=== PATIENT | female | born 1940 | race Caucasian/White ===

== ENCOUNTER → 2018-01-05 07:59 | Outpatient (CLI) | payer MEDICARE, SELFPAY ==
--- NOTE | 2018-01-05 08:04 | CT_ITS ---
CT abdomen pelvis wo con CLINICAL INDICATION: Left lower quadrant pain with nausea ITS.REASON: LLQ PAIN ORDERING PHYSICIAN: Ayan Sanchez PATIENT AGE: 77 years COMPARISON: 07/13/2017 TECHNIQUE: Axial images obtained with sagittal and coronal reformats. PROCEDURE: Oral Contrast: None IV Contrast: None . FINDINGS: No acute finding in the lung bases. The liver, gallbladder, spleen, adrenal glands, and pancreas have an unremarkable unenhanced CT appearance. There is minimal prominence of the renal pelves. No obstructing ureteral calculi are evident. Unremarkable appendix. No intestinal obstruction or free air. There is extensive diverticulosis of the sigmoid colon with diverticula also present in the descending colon. No evidence of diverticulitis. No mass or focal inflammatory change within the pelvis. There is mild wedging of L1 which appears chronic with grade 1 nonspecific white lytic spondylolisthesis of L4 on L5 and degenerative disc disease of the lumbar spine. IMPRESSION: 1. No acute abdominal or pelvic findings. 2. Extensive sigmoid diverticulosis with no evidence of diverticulitis.
--- NOTE | 2018-01-05 08:29 | HMH.ITSHM ---
CENTRUM,METIPROLOL PRAVASTATIN,LEVOTHYROXIN MIRALAX,NEXIUM GEMFIBROZIL METFROMIN NAPROXEN LISINOPRI'; CALTRATE,GABAPENTIN
== END ==
PROVIDERS: Family Provider Internal Medicine; PCP Internal Medicine; Visit Provider Internal Medicine
DX: R10.32 Left lower quadrant pain (principal)
CPT/HCPCS: 74176

== ENCOUNTER 2018-03-29 13:30 | Outpatient (RCR) | payer MEDICARE, SELFPAY ==
--- NOTE | 2018-01-27 15:46 | HMH.PTOPEV ---
Rehab Outpatient Evaluation Rehab OP Evaluation Start: 01/27/18 15:11 Freq: Status: Active Protocol: Document 01/27/18 15:11 LORI (Rec: 01/27/18 15:46 LORI [id number]) Electronically Signed By Alan Hayden, PT 01/27/18 15:11 Outpatient Therapy Subjective History Subjective History Pt reports injuring low back on 01/13/18 while attempting to help lift up off the floor, who had recently fallen . Pt reports midline LBP initially, however, reports LBP has increased in intensity since injury, and has also began to radiate into R lumbar paraspinal region. PMH: OA, DM, chronic LBP Chief Complaint Pain Spasms Stiff Symptom Type Ache Throb Sharp Dull Symptoms Relieved By Heat OTC Meds Symptoms Aggravated By Physical Activity Walking Lifting Prior Functional Limitations None Current Functional Limitations Lifting Housework Standing Walking Bending/Stooping Symptom Description Constant but Variable Level of pain today (0-10) 8 Pain scale - at its best (0-10) 6 Pain scale - at its worst (0-10) 8 Lumbopelvic Eval Posture Thoracic Spine Posture Standing Position Flattened Lumbar Spine Posture Standing Position Flattened Assistive device Assistive Devices None / NA Gait Observation General Gait Pattern Observation Antalgic Gait Palapation tenderness left paraspinal tenderness Yes: 1/4 right lumbar spinal tenderness Yes: 2/4 paraspinal tenderness Yes: 3/4 buttock tenderness Yes: 3/4 Accessory Movement L-spine Vertebrae Accessory Movements [employer] [place] that Elicit Symptoms L3 bilateral L4 bilateral L5 bilateral S1 bilateral Range of Motion Lumbar Spine Active Flexion Range of 0-30 Motion (degrees) Lumbar Spine Active Extension Range of 0-10 Motion (degrees) Left Lumbar Spine Lateral Flexion Active 0-20 Range of Motion (degrees) Right Lumbar Spine Lateral Flexio
== END 2018-03-29 13:31 | disposition home or self-care (01) ==
LOC: PT 13:30
PROVIDERS: Family Provider Internal Medicine; PCP Internal Medicine; Visit Provider Internal Medicine
DX: M54.5 Low back pain (principal)
CPT/HCPCS: 97010; 97014; 97035; 97110; 97140; G0283

== ENCOUNTER → 2018-11-07 11:08 | Outpatient (CLI) | payer MEDICARE, SELFPAY ==
[2018-11-07 11:19] LABS: Basophils # 0.1 K/mm3 (0-0.2); Basophils % 0.7 % (0.1-2.0); Eosinophils # 0.2 K/mm3 (0.0-0.4); Eosinophils % 1.8 % (0.1-12.0); Hematocrit 39.3 % (37.0-47.0); Hemoglobin 12.7 g/dL (12.2-16.2); Lymphocytes # 1.5 K/mm3 (0.7-4.5); Lymphocytes % 18.4 % (10-50); Mean Corpuscular HGB Conc 32.4 g/dL (31.8-35.4); Mean Corpuscular Hemoglobin 26.1 pg (27.0-31.2); Mean Corpuscular Volume 80.6 fl (81-99); Monocytes # 0.5 K/mm3 (0.1-1.0); Monocytes % 5.7 % (1.7-9.3); Neutrophils % 73.5 % (37.0-80.0); Platelet Count 306 K/mm3 (142-424); Red Blood Count 4.88 M/mm3 (4.20-5.40); Red Cell Distribution Width 15.2 % (11.5-17.5); White Blood Count 8.1 K/mm3 (4.8-10.8)
[2018-11-07 11:38] LABS: Alanine Aminotransferase 29 U/L (12-78); Albumin Level 3.1 gm/dL (3.4-5.0); Albumin/Globulin Ratio 0.8 (1.1-1.8); Alkaline Phosphatase 119 U/L (46-116); Amylase 36 U/L (25-115); Anion Gap 12.6 mEq/L (5-15); Aspartate Amino Transferase 18 U/L (15-37); Bilirubin,Total 0.6 mg/dL (0.2-1.0); Blood Urea Nitrogen 11 mg/dL (7-18); Calcium 8.9 mg/dL (8.5-10.1); Carbon Dioxide 28 mmol/L (21.0-32.0); Chloride 99 mmol/L (98-107); Creatinine,Serum 0.99 mg/dL (0.55-1.02); Estimated Glomerular Filt Rate 54 ml/min (>60); GFR (African American) 65 ML/MIN (>60); Globulin 3.7 gm/dl (1.3-3.2); Glucose 151 mg/dL (74-106); Potassium 3.6 mmoL/L (3.5-5.1); Sodium 136 mmol/L (136-145); Total Protein,Serum 6.8 gm/dL (6.4-8.2)
== END ==
PROVIDERS: PCP Internal Medicine; Visit Provider Internal Medicine
DX: R11.2 Nausea with vomiting, unspecified (principal)
CPT/HCPCS: 80053; 82150; 85025

== ENCOUNTER → 2018-12-12 14:22 | Outpatient (CLI) | payer MEDICARE, SELFPAY ==
--- NOTE | 2018-12-12 14:30 | XR_ITS ---
XR chest 2V HISTORY: ITS.REASON: FEVER,COUGH,ASTHMA, ORDERING PHYSICIAN: Ayan Sanchez PATIENT AGE: 78 years COMPARISON: None FINDINGS: The cardiomediastinal silhouette and pulmonary vascularity are within normal limits. Coronary artery calcifications are present. There is hyperinflation with attenuation of the peripheral pulmonary vessels. The lungs are clear without infiltrates, suspicious nodules, or pleural effusions. There is a 7 mm rounded opacity overlying the right lower lobe which is nonspecific and could even be due to summation artifact No acute bony abnormalities. IMPRESSION: 1. Coronary artery calcification. 2. Mild hyperinflation. No lobar consolidation. 3. There is a 7 mm nodular opacity noted over the right lower lung zone nonspecific. Consider follow-up to confirm stability
== END ==
PROVIDERS: PCP Internal Medicine; Visit Provider Internal Medicine
DX: R50.9 Fever, unspecified (principal); R05 Cough; J45.909 Unspecified asthma, uncomplicated
CPT/HCPCS: 71046

== ENCOUNTER → 2020-04-17 10:48 | Outpatient (CLI) | payer MEDICARE, SELFPAY ==
[2020-04-17 12:34] LABS: Coronavirus 19 IgG Antibody Negative (Negative); Coronavirus 19 IgM Antibody Negative (Negative)
== END ==
PROVIDERS: Visit Provider Internal Medicine Gastroenterology
DX: Z01.818 Encounter for other preprocedural examination (principal)
CPT/HCPCS: 36415; 86328

== ENCOUNTER 2020-04-19 10:02 | Day surgery (SDC) | payer MEDICARE, SELFPAY ==
[2020-04-19] VITALS (10 sets, daily range): BP systolic 166–215; BP diastolic 71–99; PULSE 53–77; RESP 16–18; TEMP 36.7; O2SAT 97–100; BMI 23.6
--- NOTE | 2020-04-19 11:07 | P.PN_ITS ---
[facility] Anesthesia Checklist - Patient Identification Patient Identification: Arm Band, Verbal (Name & ) - Structural Data Admitted From: Home Planned Operative Procedure/s: EGD Consent for Planned Operative Procedure(s) Verified: Yes Verified Documents: Surgical Consent, History and Physical - NPO Status Verified Time NPO: 00:00 - Chart Verification Results Verified: None - Additional verifications Anesthesia Reactions: No - Airway Assessment C-Spine Mobility Assessed: Yes TMJ Mobility Assessed: Yes Dentition: Poor Dentition - Neurological Assessment Level of Consciousness: Awake, Alert, Appropriate, Follows Commands Hx Seizures: No Numbness or tingling in extremities: No - Anesthesia Plan Anesthesia Risk discussed: Yes Anesthesia Plan: Verified ASA Class: III Anesthesia Type: MAC [facility] History I have reviewed the patient's past medical history: Yes Medical History: Reports:: Chronic Obstructive Pulmonary Disease (COPD), Gastroesophageal Reflux Disease(GERD), Hyperlipidemia, Hypertension, Migraine Denies:: Cancer, Diabetes Mellitus Type 1, Diabetes Mellitus Type 2, Internal Pacemaker, MRSA, Seizures *Have you ever received a pneumonia vaccine?: Yes *Have you received a flu vaccine this season?: Yes Comment:: KRISTEN Anesthesia experience/problems:: None Other Surgeries: No: Pacemaker Amputation: No Fractures: No - *Social History Educational Level: Completed High School Smoking Status: Never smoker Alcohol Intake: never Substance Use Type: denies use *Occupational Status:: retired Housing: house Household Members: spouse *Travel in the last 8 weeks: None Family Hx:: Other (NA)
--- NOTE | 2020-04-19 11:09 | P.PCN_ITS ---
[facility] Procedure Note Procedure Note:: Upper Endoscopy Procedure Report: Esophagogastroduodenoscopy with cold biopsies and TTS balloon dilation Endoscopost: Sal Dang II, MD Referring Physician: Ayan Sanchez MD Date of Procedure: April 19, 2020 Equipment: Olympus GIF 180 standard upper endoscope Sedation: MAC sedation Indications: Mrs. Willis is an 79-year-old female with midepigastric abdominal discomfort postprandially. She does report moderate belching and some bloating with early satiety. She has occasional nausea. She does get heartburn and takes Tums but not PPI therapy. She does get intermittent swallowing difficulty/dysphagia. She reports regular bowel function. This is her first upper endoscopy performed for diagnostic purposes. Procedure: Prior to the procedure, a history and physical exam was performed, and patient's medications and allergies were reviewed. The risks, benefits and alternatives of the sedation and procedure were discussed with the patient. All questions were answered and informed consent was obtained. The patient was brought to the procedure room. Patient identification and proposed procedure were verified by the physician and the nurse. The patient was placed in a left lateral decubitus position and the scope was passed under direct vision. Throughout the procedure, the patient's blood pressure, pulse, and oxygen saturations were monitored continuously. The upper GI endoscopy was accomplished without difficulty. The patient tolerated the procedure well. Findings: The scope was passed directly into the upper esophagus and advanced to the third portion of the duodenum. The post bulbar duodenum and duodenal bulb were normal with normal mucosa and conniventes. The scope was withdrawn through a normal duodenal bulb and pylorus into the stomach. There was very mild reactive gastropathy of the antrum. The body of the stomach was normal. Upon retroflexion there was a moderate sized 4 to 5 cm hiatal hernia. There were no Santi's erosions. 2 biopsies were taken from the gastric antrum and lesser curvature for histology. The scope was then withdrawn into the esophagus. There was a distal esophageal ring/Schatzki's ring. There was some nonerosive changes of reflux and biopsies were taken at the GE junction. There were tertiary contractions and evidence of moderate esophageal dysmotility. The entire esophagus was dilated to 60 [place]/20 mm with a TTS hydrostatic balloon. There was some resistance at the cricopharyngeus. The remainder of the es ophageal mucosa was normal. Impression: 1. Cricopharyngeal spasm 2. Nonerosive GERD with moderate esophageal dysmotility 3. Moderate sized 4 to 5 cm hiatal hernia 5. Mild reactive gastropathy Plan: I will discuss additional dietary measures and treatment options of her ongoing dyspepsia. I will follow-up the biopsies.
--- NOTE | 2020-04-19 13:59 | PC.NURSE ---
order obtained from anesthesia for pt bp. see emar.
--- NOTE | 2020-04-19 14:04 | PC.NURSE ---
Instructed pt to monitor bp, f/u with family MD if remains elevated.
--- NOTE | 2020-04-19 15:58 | SUR.PHASEII ---
1545-Pt msg left on cell voice mail that Omeprazole RX was called into [facility] in [place]. Pt Daughter drop script in hallway and was found after pt left.
== END 2020-04-19 12:20 | disposition home or self-care (01) ==
LOC: OUTP 10:06
PROVIDERS: PCP Internal Medicine; Visit Provider Internal Medicine Gastroenterology
PROC: 0DJ08ZZ Inspection of Upper Intestinal Tract, Via Natural or Artificial Opening Endoscopic (ICD-10-PCS; CPT 43235; principal; 2020-04-19 11:00)
DX: J39.2 Other diseases of pharynx (principal); K22.2 Esophageal obstruction; K21.9 Gastro-esophageal reflux disease without esophagitis; K31.9 Disease of stomach and duodenum, unspecified; K44.9 Diaphragmatic hernia without obstruction or gangrene; I10 Essential (primary) hypertension; E78.5 Hyperlipidemia, unspecified; G47.33 Obstructive sleep apnea (adult) (pediatric); J44.9 Chronic obstructive pulmonary disease, unspecified; G43.909 Migraine, unspecified, not intractable, without status migrainosus; Z79.899 Other long term (current) drug therapy
CPT/HCPCS: 43239; 43249; 88305; C1726

== ENCOUNTER 2021-04-18 09:21 | Emergency (ER) | payer MEDICARE, SELFPAY ==
[2021-04-18] VITALS (10 sets, daily range): BP systolic 170–246; BP diastolic 75–114; PULSE 60–75; RESP 16–22; TEMP 36.4–36.7; O2SAT 94–99; BMI 21.7
--- NOTE | 2021-04-18 09:23 | CT_ITS ---
PROCEDURE: CT THORACIC SPINE WO CON CT lumbar spine without contrast CLINICAL HISTORY: fall with thoracic and lumbar vertebral pain COMPARISON: CT ABDPELWO CT abdomen pelvis wo con from 01/05/2018 CR CXR2V XR chest 2V from 12/12/[address] LUMBAR SPINE WO CON from 04/18/2021 TECHNIQUE: Axial images obtained with sagittal and coronal reformats. All CT scans at the facility use one or more dose reduction, viz: automated exposure control, ma/kV adjustment per patient size (including targeted exams where dose is matched to indication, i.e. head), or iterative reconstruction technique. FINDINGS: CT thoracic spine shows a moderate compression fracture of the T7 vertebral body estimated at 50 percent without retropulsion of fracture components into the spinal canal or posterior element involvement. No other compression fractures. Moderate diffuse degenerative changes are present with some degenerative change of the lower cervical spine. Visualized lung garcia and thoracic aorta are normal. There is a small retrocardiac hiatal hernia. CT lumbar spine shows a moderate to high-grade compression fracture of the L2 vertebral body with moderate retropulsion of the superior aspect of the fracture component into the spinal canal with resultant mild spinal canal stenosis. No posterior element involvement. No other compression fractures of the lumbar spine. Extensive diffuse degenerative changes are present, most pronounced at L5-S1. Small Schmorl's node formation inferior endplate L1 noted. SI joints are normal. No adrenal mass is noted. Remainder of the visualized abdominal organs show no focal abnormality. IMPRESSION: Moderate compression fracture of the T7 vertebral body without posterior element involvement or retropulsion of fracture components into the spinal canal. Moderate to high-grade compression fracture of the L2 vertebral body with moderate retropulsion of the fracture component into the spinal canal and resultant mild spinal canal stenosis. No posterior element involvement. Diffuse degenerative changes of the thoracic spine elsewhere noted. Extensive diffuse degenerative changes of the lumbar spine, most pronounced at L5-S1. Small retrocardiac hiatal hernia. Dictated by: Robert Melendez MD 04/18/2021 10:18 Robert Melendez MD in [place] 04/18/2021 10:18
--- NOTE | 2021-04-18 09:26 | HMH.EDBACK ---
ED Disposition Clinical Impression: Thoracic spine fracture Qualifiers: Encounter type: initial encounter Thoracic vertebra fracture level: T7 Fracture type: closed Fracture morphology: unspecified fracture morphology Qualified Code(s): S22.069A - Unspecified fracture of T7-T8 vertebra, initial encounter for closed fracture Fracture of lumbar spine Qualifiers: Encounter type: initial encounter Lumbar vertebra fracture level: L2 Fracture type: closed Fracture morphology: unspecified fracture morphology Qualified Code(s): S32.029A - Unspecified fracture of second lumbar vertebra, initial encounter for closed fracture Disposition: Xfer Short-Term Hosp Condition on Discharge: Good - Critical Care Critical Care Time: No Attestation: On , the high probability of a clinically significant, sudden or life threatening deterioration of the following system(s) required my full and direct attention, intervention and personal management. The time I documented below is in addition to time spent performing reported procedures but includes the following listed in this critical care notation. Medical Decision Making - Medical Records Medical records reviewed: Yes: I reviewed the patient's medical records. - Julius Inquiry Pt receiving controlled substance: Yes Julius was queried for this patient: No Reason not queried -: Julius login issues Risks and benefits of using a controlled substance: were discussed with pt by me Vital Signs: 04/18/21 09:22 Temperature 97.9 F Temperature Source Oral Pulse Rate [Right] 69 Respiratory Rate 20 Blood Pressure [Right Arm] 230/113 H Blood Pressure Mean [Right Arm] 152 Blood Pressure Source [Right Arm] Automatic Cuff Blood Pressure Position [Right Arm] Sitting 02 Sat by Pulse Oximetry 94 L - Lab Data Lab Results 04/18/21 09:26: Urine Color Yellow, Urine Appearance Sl cloudy, Urine pH 8.0, Ur Specific [place] 1.025, Urine Protein 3+, Urine Glucose (UA) Negative, Urine Ketones Negative, Urine Blood 1+, Urine Nitrate Negative, Urine Bilirubin Negative, Urine Urobilinogen 0.2, Ur Leukocyte Esterase Negative, Urine RBC 5-10, Urine WBC 3-5, Ur Squamous Epith Cells Occasional, Urine Bacteria 1+ Orders (Tests/Meds): ED MEDICATIONS Discontinued Medications Generic Name Dose Route Start Last Admin Trade Name Freq PRN Reason Stop Dose Admin Metoprolol Tartrate 50 mg 04/18/21 09:35 04/18/21 10:40 Metoprolol Tartrate 50mg Tablet PO 04/18/21 09:36 50 mg ONCE ONE Administration Oxycodone/Acetaminophen 1 each 04/18/21 11:02 Oxycodone 5mg W/Apap 325mg Tablet PO 04/18/21 11:03 ONCE ONE - CT Data CT Scan: T-Spine, L-Spine Time Received: 11:[address] Reviewed: Yes: I have reviewed the patient's CT results Findings Narrative: Moderate compression fracture of the T7 vertebral body without posterior element involvement or retropulsion of fracture components into the spinal canal. Moderate to high-grade compression fracture of the L2 vertebral body with moderate retropulsion of the fracture component into the spinal canal and resultant mild spinal canal stenosis. No posterior element involvement. Diffuse degenerative changes of the thoracic spine elsewhere noted. Extensive diffuse degenerative changes of the lumbar spine, most pronounced at L5-S1. Small retrocardiac hiatal hernia. Medical Decision Narrative: Patient with no signs of head trauma and denies any head injury, does not take blood thinners. She is alert and oriented x4, cervical spine cleared via Nexus criteria. Thoracic and lumbar spine CT scan show moderate T7 compression fracture with involvement of 50%, no retropulsion of fragments and L2 moderate to high-grade compression fracture with some retropulsion and spinal canal stenosis. Patient remains neurovascularly intact. I discussed this case with Dr. Eagle, on-call with neurosurgery at the [facility] and he accepts the patient there
--- NOTE | 2021-04-18 09:31 | PC.NURSE ---
pt ambulated to restroom with staff assist x1, tolerated well
[2021-04-18 09:32] LABS: Microscopic, Urine URINE MICROSCOPIC (MICROSCOPIC)
[2021-04-18 09:35] LABS: Appearance,Urine SL CLOUDY (Clear); Bilirubin,Urine Negative (Negative); Blood, Urine 1+ (Negative); Color,Urine YELLOW (Yellow); Glucose,Urine (UA) Negative (Negative); Ketones,Urine Negative (Negative); Leukocyte Esterase,Urine Negative (Negative); Nitrate,Urine Negative (Negative); Protein,Urine 3+ (Negative); Specific Gravity, Urine 1.025 (1.005-1.030); Urobilinogen,Urine 0.2 EU/dl (0.2)
--- NOTE | 2021-04-18 09:37 | PC.NURSE ---
pt to CT
[2021-04-18 09:44] LABS: Squamous Epithelial Cell,Urine Occasional #/hpf (0-5)
[2021-04-18 09:45] LABS: Bacteria,Urine 1+ /lpf
--- NOTE | 2021-04-18 12:35 | PC.NURSE ---
notified [facility] of transfer of pt
--- NOTE | 2021-04-18 12:41 | PC.NURSE ---
notified ER MD of continued elevated bp er md gave verbal order for hydralazine 10 mg one time dose
--- NOTE | 2021-04-18 13:14 | PC.NURSE ---
report called to timi cordova rn
--- NOTE | 2021-04-18 13:25 | PC.NURSE ---
report given to [facility]
== END 2021-04-18 13:26 | disposition short-term general hospital (02) ==
PROVIDERS: Emergency Provider Emergency Medicine; PCP Internal Medicine
DX: S22.069A Unspecified fracture of T7-T8 vertebra, initial encounter for closed fracture (principal); S32.029A Unspecified fracture of second lumbar vertebra, initial encounter for closed fracture; W18.00XA Striking against unspecified object with subsequent fall, initial encounter; Y92.012 Bathroom of single-family (private) house as the place of occurrence of the external cause; J44.9 Chronic obstructive pulmonary disease, unspecified; K21.9 Gastro-esophageal reflux disease without esophagitis; E78.5 Hyperlipidemia, unspecified; I10 Essential (primary) hypertension; Z79.899 Other long term (current) drug therapy
CPT/HCPCS: 72128; 72131; 81001; 96374; 96375; 99283; J2405

== ENCOUNTER 2022-06-15 01:19 | Inpatient (IN) | payer MEDICARE, SELFPAY ==
[2022-06-15] VITALS (14 sets, daily range): BP systolic 149–190; BP diastolic 68–82; PULSE 58–89; RESP 16–21; TEMP 36.3–36.8; O2SAT 90–97; BMI 23.3; BMI 22.4
--- NOTE | 2022-06-15 01:33 | XR_ITS ---
PROCEDURE INFORMATION: Exam: XR Right Hip Exam date and time: 06/15/2022 2:01 AM Age: 81 years old Clinical indication: Injury or trauma; Fall; Blunt trauma (contusions or hematomas); Right; Hip TECHNIQUE: Imaging protocol: Radiologic exam of the Right hip. Views: 2 or 3 views hip with pelvis when performed. COMPARISON: ABDPELWO CT abdomen pelvis wo con 01/05/2018 8:12 AM FINDINGS: Bones/joints: Comminuted angulated intertrochanteric fracture of the proximal right femur noted. Bony pelvis appears intact. Visualized proximal left femur appears intact. Soft tissues: Unremarkable. IMPRESSION: Comminuted angulated intertrochanteric fracture of the right femur.
--- NOTE | 2022-06-15 01:33 | CT_ITS ---
PROCEDURE INFORMATION: Exam: CT Head Without Contrast Exam date and time: 06/15/2022 2:34 AM Age: 81 years old Clinical indication: Injury or trauma; Fall TECHNIQUE: Imaging protocol: Computed tomography of the head without contrast. Radiation optimization: All CT scans at this facility use at least one of these dose optimization techniques: automated exposure control; mA and/or kV adjustment per patient size (includes targeted exams where dose is matched to clinical indication); or iterative reconstruction. COMPARISON: No relevant prior studies available. FINDINGS: Brain: There is mild enlargement of ventricular system and cortical sulci without evidence of mass effect or midline shift. Patchy areas of hypodensity without mass-effect are noted in the periventricular white matter compatible with chronic microvascular ischemic disease. The duarte/white matter interfaces are preserved. There are no extra-axial fluid collections.The basal cisterns are patent. Cerebral ventricles: No hydrocephalus. Paranasal sinuses: Opacification of the right maxillary, right ethmoid, sphenoid and right frontal sinuses. No fluid levels. Mastoid air cells: Visualized mastoid air cells are well aerated. Bones/joints: Unremarkable. No acute fracture. Soft tissues: Unremarkable. IMPRESSION: 1. No evidence of intracranial hemorrhage, mass effect, midline shift or hydrocephalus. 2. Involutional changes. 3. Findings compatible with chronic microvascular ischemic disease. 4. Opacification of the right maxillary, right ethmoid, sphenoid and right frontal sinuses.
--- NOTE | 2022-06-15 01:33 | ECG_ITS ---
APPROVED REPORT Exam: Resting ECG HR:59 bpm ECG Measurements Heart Rate 59 AXES DE 194 P 72 QRSd 84 QRS 29 QT 430 T 75 QTc 429 Conclusion SINUS BRADYCARDIA LOW QRS VOLTAGE IN EXTREMITY LEADS [QRS DEFLECTION < 0.5 mV IN LIMB LEADS] SEPTAL MYOCARDIAL INFARCTION , PROBABLY OLD [40+ ms Q WAVE IN V1/V2] ABNORMAL ECG UNCONFIRMED REPORT Electronically signed by : Minh Chase MD 06/15/2022 14:21:52
--- NOTE | 2022-06-15 01:33 | XR_ITS ---
PROCEDURE INFORMATION: Exam: XR Right Femur Exam date and time: 06/15/2022 2:04 AM Age: 81 years old Clinical indication: Injury or trauma; Fall; Blunt trauma; Thigh or upper leg; Right TECHNIQUE: Imaging protocol: Radiologic exam of the Right femur. Views: 2 views. COMPARISON: CR XR HIP RT 2-3V W/PELVIS 06/15/2022 2:01 AM FINDINGS: Bones/joints: There is a comminuted angulated intertrochanteric fracture of the proximal femur. Femoral diaphysis and visualized portions of the knee are normal. Soft tissues: Unremarkable. IMPRESSION: Comminuted angulated intertrochanteric fracture the proximal femur.
--- NOTE | 2022-06-15 01:33 | XR_ITS ---
PROCEDURE INFORMATION: Exam: XR Chest Exam date and time: 06/15/2022 2:06 AM Age: 81 years old Clinical indication: Injury or trauma; Fall; Blunt trauma (contusions or hematomas) TECHNIQUE: Imaging protocol: Radiologic exam of the chest. Views: 4 or more views. COMPARISON: CR CXR2V XR chest 2V 12/12/2018 2:33 PM FINDINGS: Lungs: Unremarkable. No consolidation. Pleural spaces: Unremarkable. No pleural effusion. No pneumothorax. Heart/Mediastinum: Unremarkable. No cardiomegaly. Vasculature: Calcified aortic arch without dilation. Bones/joints: Midthoracic compression deformity is notable in light of recent CT. IMPRESSION: No acute cardiopulmonary abnormality.
--- NOTE | 2022-06-15 01:33 | CT_ITS ---
PROCEDURE INFORMATION: Exam: CT Thoracic Spine Without Contrast Exam date and time: 06/15/2022 2:39 AM Age: 81 years old Clinical indication: Injury or trauma; Fall TECHNIQUE: Imaging protocol: Computed tomography of the thoracic spine without contrast. Radiation optimization: All CT scans at this facility use at least one of these dose optimization techniques: automated exposure control; mA and/or kV adjustment per patient size (includes targeted exams where dose is matched to clinical indication); or iterative reconstruction. COMPARISON: CT THORACIC SPINE WO CON 04/18/2021 9:56 AM FINDINGS: Bones/joints: There has been interval progression of compression deformity at T7, it now all appearing as vertebra plana. Inferior endplate deformity at T1 is unchanged from the prior. Segmentation anomaly at T8-9 noted, unchanged. Otherwise visualized posterior ribs appear normal. Discs/Spinal canal/Neural foramina: Posterior cortex protrudes into the spinal canal but the spinal canal remains adequate. There is multilevel costovertebral junction osteoarthritis. Soft tissues: Unremarkable. Lungs: Imaged lung parenchyma is clear. IMPRESSION: 1. There has been interval progression of T7 compression deformity when compared to prior exam in April. There is now vertebral plana with fragment of posterior cortex protruding slightly into the spinal canal. 2. No other acute abnormality. Consider quantification of osteoporosis with DEXA.
--- NOTE | 2022-06-15 01:33 | CT_ITS ---
PROCEDURE INFORMATION: Exam: CT Lumbar Spine Without Contrast Exam date and time: 06/15/2022 2:42 AM Age: 81 years old Clinical indication: Injury or trauma; Fall TECHNIQUE: Imaging protocol: Computed tomography of the lumbar spine without contrast. Radiation optimization: All CT scans at this facility use at least one of these dose optimization techniques: automated exposure control; mA and/or kV adjustment per patient size (includes targeted exams where dose is matched to clinical indication); or iterative reconstruction. COMPARISON: CT LUMBAR SPINE WO CON 04/18/2021 9:59 AM FINDINGS: Bones/joints: Superior compression deformity at L2 is unchanged from prior exam. Schmorl's node affecting the inferior endplate of L1 is unchanged. Discs/Spinal canal/Neural foramina: There is multilevel degenerative disc and facet disease. There is mild spinal canal stenosis at L1-L2. At L2-L3 there is a broad diffuse disc bulge with mild bilateral neural foraminal stenosis. At L3-L4, spinal canal and neural foramina are patent. At L4-L5, there is degenerative anterolisthesis from hypertrophic facet arthropathy which causes severe spinal canal stenosis. At L5-S1, there is degenerative disc and facet disease with bilateral neural foraminal stenosis. Kidneys and ureters: Visualized portions of the kidneys and adrenals appear normal. Vasculature: Mild diffuse arterial calcification is evident. Soft tissues: Unremarkable. IMPRESSION: No acute fracture or traumatic malalignment. No change from prior exam. There is multilevel degenerative disc and facet disease with severe spinal stenosis at L4-L5 and mild canal stenosis at L1-L2. Correlate with findings of neurogenic claudication.
--- NOTE | 2022-06-15 01:33 | CT_ITS ---
PROCEDURE INFORMATION: Exam: CT Cervical Spine Without Contrast Exam date and time: 06/15/2022 2:36 AM Age: 81 years old Clinical indication: Injury or trauma; Fall TECHNIQUE: Imaging protocol: Computed tomography of the cervical spine without contrast. Radiation optimization: All CT scans at this facility use at least one of these dose optimization techniques: automated exposure control; mA and/or kV adjustment per patient size (includes targeted exams where dose is matched to clinical indication); or iterative reconstruction. COMPARISON: CS5 CERVICAL SPINE 4 OR 5 VIEWS 03/15/2017 4:17 PM FINDINGS: Bones/joints: No acute fracture. Normal alignment. C2-C3: Bulging annulus. No severe spinal canal stenosis. No significant neural foraminal narrowing. C3-C4: Bulging annulus. No severe spinal canal stenosis. Facet hypertrophy. No significant neural foraminal narrowing. C4-C5: No significant disc protrusion. No severe spinal canal stenosis. Facet hypertrophy causing bilateral foraminal narrowing. C5-C6: Severe disc desiccation. Dorsal osteophyte. No severe spinal canal stenosis. Facet hypertrophy causing bilateral foraminal narrowing. C6-C7: Severe disc desiccation and vertebral endplate erosions. No significant disc protrusion. Dorsal osteophytes. No severe spinal canal stenosis. No significant neural foraminal narrowing. C7-T1: Severe disc desiccation and vertebral endplate erosions. No significant disc protrusion. No severe spinal canal stenosis. No significant neural foraminal narrowing. Lungs: Lung apices are normal. Soft tissues: Unremarkable. IMPRESSION: 1. No acute fractures or listhesis. 2. Degenerative disc disease and cervical spondylosis as described above.
[2022-06-15 01:39] LABS: Basophils # 0.1 K/mm3 (0-0.2); Basophils % 0.9 % (0.1-2.0); Eosinophils # 0.4 K/mm3 (0.0-0.4); Eosinophils % 3.2 % (0.1-12.0); Hematocrit 46.4 % (37.0-47.0); Hemoglobin 14.4 g/dL (12.2-16.2); Lymphocytes # 3.2 K/mm3 (0.7-4.5); Lymphocytes % 24.3 % (10-50); Mean Corpuscular HGB Conc 31.1 g/dL (31.8-35.4); Mean Corpuscular Hemoglobin 28.3 pg (27.0-31.2); Monocytes # 0.7 K/mm3 (0.1-1.0); Neutrophils # 8.7 K/mm3 (1.8-7.8); Neutrophils % 66.7 % (37.0-80.0); Platelet Count 332 K/mm3 (142-424); White Blood Count 13.1 K/mm3 (4.8-10.8)
--- NOTE | 2022-06-15 01:40 | PC.NURSE ---
PT REPOSITIONED FOR COMFORT. PT REQUESTS PAIN MEDICATIONS. MADE AWARE. PT AWARE THAT SHE WILL BE GOING TO RADIOLOGY.
--- NOTE | 2022-06-15 01:42 | XR_ITS ---
PROCEDURE INFORMATION: Exam: XR Left Knee Exam date and time: 06/15/2022 2:22 AM Age: 81 years old Clinical indication: Injury or trauma; Fall; Blunt trauma; Knee; Left TECHNIQUE: Imaging protocol: Radiologic exam of the Left knee. Views: 1 or 2 views. COMPARISON: No relevant prior studies available. FINDINGS: Bones/joints: No evidence of acute fracture or dislocation. No erosive disease. No significant degenerative change. No joint effusion. Soft tissues: Normal. IMPRESSION: Normal left knee.
--- NOTE | 2022-06-15 01:42 | XR_ITS ---
PROCEDURE INFORMATION: Exam: XR Right Knee Exam date and time: 06/15/2022 2:07 AM Age: 81 years old Clinical indication: Injury or trauma; Fall; Blunt trauma; Knee; Right TECHNIQUE: Imaging protocol: Radiologic exam of the Right knee. Views: 1 or 2 views. COMPARISON: CR [id number] [id number]-RT 03/05/2017 3:46 PM FINDINGS: Bones/joints: No evidence of acute fracture or dislocation. No erosive disease. No significant degenerative change. No joint effusion. Soft tissues: Normal. IMPRESSION: No acute bony abnormality.
[2022-06-15 01:44] LABS: Alanine Aminotransferase 26 U/L (12-78); Albumin Level 3.9 g/dl (3.5-5.0); Albumin/Globulin Ratio 1.1 (1.1-1.8); Alkaline Phosphatase 134 U/L (38-126); Aspartate Amino Transferase 28 U/L (14-36); Blood Urea Nitrogen 20 mg/dl (7-17); Calcium 9.6 mg/dl (8.4-10.2); Carbon Dioxide 27 mmol/L (22.0-30.0); Chloride 100 mmol/L (98-107); Creatinine Clearance Estimated 43 mL/min (50-200); Estimated Glomerular Filt Rate 69 ml/min (>60); GFR (African American) 83 ML/MIN (>60); Globulin 3.7 g/dL (1.3-3.2); Glucose 171 mg/dl (74-100); Sodium 134 mmol/L (136-145); Total Protein,Serum 7.6 g/dl (6.3-8.2)
[2022-06-15 01:47] LABS: Bilirubin,Total < 0.1 mg/dl (0.2-1.3)
[2022-06-15 01:59] LABS: Coronavirus 19, PCR Not Detected (NotDetected); Influenza A, PCR Not Detected (NotDetected); Influenza B, PCR Not Detected (NotDetected)
--- NOTE | 2022-06-15 02:05 | HMH.EDFALL ---
ED Disposition Clinical Impression: Hip fracture Qualifiers: Encounter type: initial encounter Fracture type: closed Laterality: right Qualified Code(s): S72.001A - Fracture of unspecified part of neck of right femur, initial encounter for closed fracture Thoracic spine fracture Qualifiers: Encounter type: subsequent encounter Thoracic vertebra fracture level: T7 Fracture type: closed Fracture morphology: wedge compression Fracture healing: with delayed healing Qualified Code(s): S22.060G - Wedge compression fracture of T7-T8 vertebra, subsequent encounter for fracture with delayed healing Lumbar stenosis Qualifiers: Neurogenic claudication status: unspecified Qualified Code(s): M48.061 - Spinal stenosis, lumbar region without neurogenic claudication UTI (urinary tract infection) Qualifiers: Urinary tract infection type: site unspecified Hematuria presence: without hematuria Qualified Code(s): N39.0 - Urinary tract infection, site not specified Disposition: Admitted As Inpatient Condition on Discharge: Good Referrals: Provider,Referral, [Referring] - - Critical Care Critical Care Time: No Attestation: On 06/15/22, the high probability of a clinically significant, sudden or life threatening deterioration of the following system(s) required my full and direct attention, intervention and personal management. The time I documented below is in addition to time spent performing reported procedures but includes the following listed in this critical care notation. Medical Decision Making - Medical Records Medical records reviewed: Yes: I reviewed the patient's medical records. - Julius Inquiry Pt receiving controlled substance: No Vital Signs: 06/15/22 01:07 06/15/22 01:30 06/15/22 02:00 Temperature 97.7 F Temperature Source Oral Pulse Rate 58 L 59 L Pulse Rate [Left Radial] 89 Respiratory Rate 16 Blood Pressure 164/75 H 190/82 H Blood Pressure [Right Arm] 168/76 H Blood Pressure Mean [Right Arm] 106 Blood Pressure Source [Right Arm] Automatic Cuff Blood Pressure Position [Right Arm] Sitting 02 Sat by Pulse Oximetry 93 L 94 L 95 Oxygen Delivery Method Room Air Room Air Room Air 06/15/22 03:00 06/15/22 03:30 06/15/22 04:00 Temperature Temperature Source Pulse Rate 61 61 63 Pulse Rate [Left Radial] Respiratory Rate 21 18 Blood Pressure 187/78 H 180/72 H 184/80 H Blood Pressure [Right Arm] Blood Pressure Mean [Right Arm] Blood Pressure Source [Right Arm] Blood Pressure Position [Right Arm] 02 Sat by Pulse Oximetry 95 96 97 Oxygen Delivery Method Room Air Room Air Room Air 06/15/22 04:30 06/15/22 05:00 Temperature Temperature Source Pulse Rate 59 L 63 Pulse Rate [Left Radial] Respiratory Rate 17 21 Blood Pressure 179/77 H 170/71 H Blood Pressure [Right Arm] Blood Pressure Mean [Right Arm] Blood Pressure Source [Right Arm] Blood Pressure Position [Right Arm] 02 Sat by Pulse Oximetry 91 L 90 L Oxygen Delivery Method Room Air Room Air - Lab Data Lab results reviewed: Yes: I reviewed the patient's lab results. Lab Results 06/15/22 01:25: WBC 13.1 H, RBC 5.10, Hgb 14.4, Hct 46.4, MCV 91.0, MCH 28.3, MCHC 31.1 L, RDW 15.0, Plt Count 332, MPV 10.0, Neut % (Auto) 66.7, Lymph % (Auto) 24.3, Day % (Auto) 5.0, Eos % (Auto) 3.2, Baso % (Auto) 0.9, Neut # (Auto) 8.7 H, Lymph # (Auto) 3.2, Day # (Auto) 0.7, Eos # (Auto) 0.4, Baso # (Auto) 0.1 06/15/22 01:25: Sodium 134 L, Potassium 4.0, Chloride 100, Carbon Dioxide 27, Anion Gap 11.0, BUN 20 H, Creatinine 0.80, Estimated Creat Clear 43, Estimated GFR 69, Est GFR ( Amer) 83, Glucose 171 H, Calcium 9.6, Total Bilirubin < 0.1 L, AST 28, ALT 26, Alkaline Phosphatase 134 H, Total Protein 7.6, Albumin 3.9, Globulin 3.7 H, Albumin/Globulin Ratio 1.1 06/15/22 01:25: Troponin I < 0.01, TSH 7.41 H, Thyroxine (T4) 12.8 H 06/15/22 01:53: SARS-CoV-2 (PCR) Not detected, Influenza A Untype (PCR) Not detected, I
[2022-06-15 02:09] LABS: Microscopic, Urine URINE MICROSCOPIC (MICROSCOPIC)
--- NOTE | 2022-06-15 02:14 | CT_ITS ---
PROCEDURE INFORMATION: Exam: CT Right Lower Extremity Without Contrast, Hip Exam date and time: 06/15/2022 2:45 AM Age: 81 years old Clinical indication: Injury or trauma; Fall; Blunt trauma; Hip; Right; Additional info: Fall with deformity TECHNIQUE: Imaging protocol: CT of the Right lower extremity without contrast was performed. Exam focused on the hip. 3D rendering (Not supervised by radiologist): MIP and/or 3D reconstructed images were created by the technologist. Radiation optimization: All CT scans at this facility use at least one of these dose optimization techniques: automated exposure control; mA and/or kV adjustment per patient size (includes targeted exams where dose is matched to clinical indication); or iterative reconstruction. COMPARISON: CR XR HIP RT 2-3V W/PELVIS 06/15/2022 2:01 AM FINDINGS: Bones/joints: There is a comminuted intertrochanteric fracture of the proximal femur. There is mild varus angulation. Imaged right hemipelvis is intact. Soft tissues: Normal. Vasculature: Mild arterial calcification. Bowel: Diverticulosis noted in the visualized colon. Urinary bladder: Catheterized urinary bladder. IMPRESSION: Comminuted angulated intertrochanteric fracture of the right femur.
[2022-06-15 02:16] LABS: Appearance,Urine CLOUDY (Clear); Bilirubin,Urine Negative (Negative); Blood, Urine Negative (Negative); Color,Urine YELLOW (Yellow); Glucose,Urine (UA) Negative (Negative); Ketones,Urine Negative (Negative); Leukocyte Esterase,Urine Negative (Negative); Nitrate,Urine Negative (Negative); Protein,Urine 1+ (Negative); Specific Gravity, Urine 1.025 (1.005-1.030); Urobilinogen,Urine 0.2 EU/dl (0.2)
[2022-06-15 02:19] LABS: Bacteria,Urine 3+ /lpf
--- NOTE | 2022-06-15 02:36 | PC.NURSE ---
staff assisted rad for pt transfer to ct table
--- NOTE | 2022-06-15 02:54 | PC.NURSE ---
assisting radiology for pt transfer from ct back to pt room
--- NOTE | 2022-06-15 03:13 | PC.NURSE ---
PT REPOSITIONED FOR COMFORT. WARM BLANKETS PROVIDED. PAIN IMPROVED SINCE ARRIVAL. IVF'S INFUSING WITHOUT DIFFICULTY WITH NO S/S OF INFILTRATION OR INFECTION. PEDAL PULSES PRESENT AND EQUAL BILAT. WCM.
--- NOTE | 2022-06-15 03:20 | PC.NURSE ---
PT REPORTS INCREASED PAIN AFTER BEING REPOSITIONED. WARM BLANKETS PROVIDED. MD MADE AWARE.
[2022-06-15 03:23] LABS: Troponin I < 0.01 ng/ml (0.00-0.034)
[2022-06-15 03:27] LABS: T4 (Thyroxine) 12.8 ug/dl (5.53-11.0)
[2022-06-15 03:40] LABS: Thyroid Stimulating Hormone 7.41 uIU/mL (0.465-4.68)
--- NOTE | 2022-06-15 04:43 | PC.NURSE ---
Pt complains of pain. RN notified.
--- NOTE | 2022-06-15 04:50 | PC.NURSE ---
PT REQUESTS PAIN MEDICATIONS. UNABLE TO GIVE NUMBER EVAL BUT STATES IT HURTS REAL BAD . MADE AWARE.
[2022-06-15 04:55] LABS: Troponin I < 0.01 ng/ml (0.00-0.034)
--- NOTE | 2022-06-15 05:50 | PC.NURSE ---
PT REPOSITIONED FOR COMFORT. PT AWARE OF GOING TO FLOOR SOON. PT REQUESTS PAIN MEDS. MADE AWARE.
--- NOTE | 2022-06-15 05:54 | PC.NURSE ---
REPORT TO PABLO JIMENES.
--- NOTE | 2022-06-15 06:17 | PC.NURSE ---
PTARRIVED VIA STRETCHER TO THE FLOOR AT THIS TIME
--- NOTE | 2022-06-15 07:11 | P.CONPHA_ITS ---
[facility] Pharmacy VTE Monitoring - Patient Demographics Admission date: 06/15/22 Report Date: 06/15/22 Time: 07:11 Allergies/Adverse Reactions: Patient Allergies codeine Allergy (Intermediate, Verified 06/15/22 06:38) I-RASH Height: 1.65 m Weight: 61 kg Patient Problems: Current Active Problems Thoracic spine fracture (Acute) Hip fracture (Acute) Lumbar stenosis (Acute) UTI (urinary tract infection) (Acute) - VTE Risk Labs: VTE Related Lab Results Hgb 14.4 g/dL (12.2-16.2) 06/15/22 01:25 Hct 46.4 % (37.0-47.0) 06/15/22 01:25 Plt Count 332 K/mm3 (142-424) 06/15/22 01:25 BUN 20 mg/dl (7-17) H 06/15/22 01:25 Creatinine 0.80 mg/dl (0.52-1.04) 06/15/22 01:25 Estimated Creat Clear 43 mL/min (50-200) 06/15/22 01:25 VTE Score: 4 VTE Risk Level: Low Risk - Prophylaxis VTE Prophylaxis Ordered?: Yes Types of VTE Prophylaxis: TEDS Knee High Location of Applied Device: Bilateral Lower Extremeties
--- NOTE | 2022-06-15 07:59 | SW/DCPLANNER ---
Addendum entered by Clemencia Jauregui 06/18/22 09:49: This patient will discharge back to [facility] today SNF level of care. COVID swab has been collected and is NEGATIVE. Addendum entered by Clemencia Jauregui 06/17/22 07:58: Updated patient information has been faxed to Trini christie/ [facility]. Trini stated that she will have a SNF bed available for this patient once she is ready to return. Discharge date is unknown at this time. Original Note: This patient currently resides at [facility] on Personal Care Unit. I will continue to follow up w/ dulce maria and Trini from [facility]. Patient will need SNF level of care once medically stable for discharge. Discharge date is unknown at this time.
--- NOTE | 2022-06-15 08:00 | CA_ITS ---
APPROVED REPORT EXAM: Comprehensive 2D, Doppler, and color-flow Echocardiogram Plant Clerk: Farrah Ramirez RVT Ht: 5 ft 5 in Wt: 140lbs BSA: 1.70 BP: 170/71 mmHg Indications: PRE-OP,HIP FX,KRISTEN,GERD,COPD,HTN,HLD TDS-PT FLAT ON BACK 2D Dimensions LVOT 2.08 cm (M/F) 1.5-2.5 LA Volume 28.20 mL LA Volume Index 16.58 mL/m2 (M/F) 16-34 M-Mode Dimensions RVDd 2.39 cm (0.9-2.6) LA Diam 3.93 cm (1.9-4.0) LVDd 5.49 cm (3.5-5.7) Ao Diam 3.05 cm (2.0-3.7) LVDs 4.02 cm (3.5-5.7) IVSd 0.45 cm (0.6-1.1) PWd 0.80 cm (0.6-1.1) EF (Teich) 51.80% FS 26.80% EDV (Teich) 146.80 mL TAPSE 2.26 (<1.7) ESV (Teich) 70.80 mL LV Diastology E Decel Time 357.00 (160-240 msec) E/A Ratio 0.7 MED E' 5.00 (< 7 cm/sec) E'/MED E' Ratio 13.72 (>14) LAT E' 7.40 (<10 cm/sec) E/LAT E' Ratio 9.27 (>14) Aortic Valve LVOT Max 106.00 (70-110 cm/s) LVOT VTI 26.79 cm AoV Peak Albaro. 236.00 (50-130 cm/s) AO Peak GR. 22.30 mmHg AO Mean GR. 12.00 (<5 mmHg) AO VTI 57.03 (18-25 cm) EUNICE (VTI) 1.60 (2.5-4.5 cm2) Mitral Valve MV E Max Albaro. 69.00 (40-130 cm/s) MV A Velocity 103.00 (40-130 cm/s) E/A Ratio 0.67 MV Decel. Time 357.00 (160-240 ms) MV PHT 104.00 ms Pulmonary Valve PV Peak Velocity 83.00 (50-150 cm/s) Left Ventricle Left atrium is mildly enlarged, left ventricle is normal size, mild concentric left ventricular hypertrophy, estimated ejection fraction 55% with no regional wall motion abnormality, grade 1 diastolic dysfunction seen without tissue Doppler evidence of raise left atrial pressure. Right Ventricle Right atrium and right ventricle are normal size and contractility. Aortic Valve Aortic valve is thickened and calcified, mean gradient across aortic valve is 14 mmHg, valve area is 1.6 cm, represents mild aortic stenosis, there is trace aortic insufficiency. Mitral Valve Mitral valve leaflets are minimally thickened, there is mild mitral regurgitation. Tricuspid Valve Tricuspid valve grossly normal, there is mild tricuspid regurgitation, tricuspid regurgitation jet velocity is inadequate for calculation of the right ventricular systolic pressure. Pulmonic Valve Pulmonic valve is poorly visualized. Great Vessels Aortic root is normal size. Inferior vena cava is poorly visualized. Pericardium No significant pericardial effusion noted. Conclusion 1. Mildly enlarged left atrium, normal left ventricular size, mild concentric left ventricular hypertrophy, estimated ejection fraction 55% with no regional wall motion abnormality, grade 1 diastolic dysfunction seen without tissue Doppler evidence of raise left atrial pressure. 2. Thickened and calcified aortic valve with mild aortic stenosis, there is trace aortic insufficiency. 3. Mild mitral and tricuspid regurgitation. 4. No significant pericardial effusion noted. 5. Inferior vena cava is poorly visualized. Electronically signed by : Renny Pascual MD 06/15/2022 18:50:27
--- NOTE | 2022-06-15 08:30 | HMH.HP ---
*Admission Date: 06/15/22 *Chief complaint: Fall at personal group home *History of present illness: 81-year-old female who lives with her at a local personal group home. She normally is very functional. Has mild memory loss with moderate cognitive impairment but normally gets around on her own. She reports that she just fell. She fell on her right hip, was unable to ambulate and had a foreshortened lower extremity was brought to the emergency department where fracture of the proximal right femur was demonstrated on x-ray and CT scan. She is admitted to hospital for operative intervention and orthopedic consultation. She denies chest pain, shortness of air, palpitations or dizziness, but does not really have a clear answer for why she fell. Denies recent leg swelling and reports that her functional status although limited at the personal-group home is good. [facility] History I have reviewed the patient's past medical history: Yes Medical History: Reports:: Chronic Obstructive Pulmonary Disease (COPD), Gastroesophageal Reflux Disease(GERD), Hyperlipidemia, Hypertension, Migraine Denies:: Cancer, Diabetes Mellitus Type 1, Diabetes Mellitus Type 2, Internal Pacemaker, MRSA, Seizures *Have you ever received a pneumonia vaccine?: No *Have you received a flu vaccine this season?: No Other Surgeries: No: Pacemaker Amputation: No Fractures: No - *Social History Smoking Status: Unknown if ever smoked Alcohol Intake: never Substance Use Type: denies use *Occupational Status:: retired Housing: custodial Household Members: spouse *Travel in the last 8 weeks: None Family Hx:: Unable to obtain Review of Systems - Review of Systems Review of systems:: pertinent systems reviewed and negative unless documented below - *Neurologic Denies seizure-like activity Meds Home Medications Medication Instructions Recorded Confirmed Type Donepezil HCl [Donepezil ODT 5mg] 10 mg PO DAILY 04/19/20 06/15/22 History Levothyroxine Sodium 50 mcg PO DAILY 04/19/20 06/15/22 History [Levothyroxine 75mcg (0.075mg) Tab] Metoprolol Succinate [Metoprolol 100 mg PO BID 04/19/20 06/15/22 History Succinate 50mg Tablet*] Acetaminophen [Tylenol 325mg 650 mg PO Q6H PRN 06/15/22 06/15/22 History Tablet] Cholecalciferol (Vitamin D3) 1 cap PO WEEKLY 06/15/22 06/15/22 History [Dialyvite Vitamin D3 Max] Cyanocobalamin (Vitamin B-12) 1,000 mcg PO DAILY 06/15/22 06/15/22 History [B-12] Escitalopram Oxalate [Lexapro] 5 mg PO DAILY 06/15/22 06/15/22 History Fluticasone Propionate [Flonase 1 spray IH DAILY 06/15/22 06/15/22 History 50mcg nasal spray 16gm] Multivit with Calcium,Iron,Min 1 each PO DAILY 06/15/22 06/15/22 History [One Daily with Calcium-Iron] NIFEdipine [Nifedipine ER] 60 mg PO DAILY 06/15/22 06/15/22 History Omeprazole [Omeprazole 40mg 40 mg PO DAILY 06/15/22 06/15/22 History Capsule] Ondansetron [Zofran 4mg ODT] 4 mg PO Q6H PRN 06/15/22 06/15/22 History calcium polycarbophiL [FiberCon 1,250 mg PO DAILY 06/15/22 06/15/22 History 625mg tablet] cloNIDine [Catapres-Tts 2] 1 patch TD WEEKLY 06/15/22 06/15/22 History lisinopriL [Lisinopril] 20 mg PO DAILY 06/15/22 06/15/22 History Allergies Allergy/AdvReac Type Severity Reaction Status Date / Time codeine Allergy Intermediate I-RASH Verified 06/15/22 06:38 Exam Vital signs and Labs for Last 24 Hours: Temp Pulse Resp BP Pulse Ox 98.1 F 68 18 177/75 H 90 L 06/15/22 05:37 06/15/22 06:49 06/15/22 05:37 06/15/22 05:37 06/15/22 06:49 Laboratory Results - last 24 hr 06/15/22 01:25: WBC 13.1 H, RBC 5.10, Hgb 14.4, Hct 46.4, MCV 91.0, MCH 28.3, MCHC 31.1 L, RDW 15.0, Plt Count 332, MPV 10.0, Neut % (Auto) 66.7, Lymph % (Auto) 24.3, [place] % (Auto) 5.0, Eos % (Auto) 3.2, Baso % (Auto) 0.9, Neut # (Auto) 8.7 H, Lymph # (Auto) 3.2, [place] # (Auto) 0.7, Eos # (Auto) 0.4, Baso # (Auto) 0.1 06/15/22 01:25: Sodium 134 L, Potassium 4.0, Chloride 100, Carbon Diox
--- NOTE | 2022-06-15 10:09 | HMH.PHAINT ---
MEDICATION RECONCILIATION COMPLETED ON PATIENT USING MAR FROM [facility]. -KELLY ROME, FAUSTINOD
--- NOTE | 2022-06-15 15:08 | PC.NURSE ---
rounded on patient. patient family noted to be upset about not knowing what the plan is for surgery. at this time not sure of time for surgery. did attempt to call preop and ortho office to see if there was an update on the plan. was unable to get lee at that time. did relay to family we would let them know as soon as we had some information on the plan. no other concerns in regards to care. did also relay to family we would get food for patient if she didn't go to surgery, and if she did then immediately after. no other questions noted. no needs currently. patient is noted to be confused. encouraged them to ring out with any needs or concerns.
--- NOTE | 2022-06-15 15:32 | HMH.ORTHOCON ---
*Admission Date: 06/15/22 *Reason for consult:: right hip fracture *History of present illness: Ms. Willis is an 81-year-old female patient admitted to the acute inpatient service after sustaining a fall in her home yesterday 06/14/2022. She is unable to recall why she fell, but believes she fell while using the bathroom. She states that she fell onto her right hip, was unable to ambulate, and was subsequently brought to the [facility] emergency department for further evaluation. Evaluation with x-ray in the emergency department demonstrated a right proximal femur fracture. This afternoon she is lying comfortably in bed and her daughter and grandson are present at the bedside. Family reports that the patient has mild memory loss at baseline, but has been more acutely confused today. She is alert this afternoon and is able to respond to my questions appropriately. She reports right hip pain as to be expected but states that it is well controlled with as needed pain medication and rest. At baseline the patient reports that she lives in a personal m[facility] with her and ambulates with the use of a walker. She denies any antecedent hip pain. Her past medical history is significant for hypertension and COPD. She states that she wears a CPAP at night but does not wear any oxygen during the day. She denies dizziness, chest pain, shortness of air, palpitations, or distal tingling/numbness. She denies any other symptoms or concerns at this time. [facility] History Medical History: Reports:: Chronic Obstructive Pulmonary Disease (COPD), Gastroesophageal Reflux Disease(GERD), Hyperlipidemia, Hypertension, Migraine Denies:: Cancer, Diabetes Mellitus Type 1, Diabetes Mellitus Type 2, Internal Pacemaker, MRSA, Seizures *Have you ever received a pneumonia vaccine?: No *Have you received a flu vaccine this season?: No Other Surgeries: No: Pacemaker Amputation: No Fractures: No - *Social History Smoking Status: Unknown if ever smoked Alcohol Intake: never Substance Use Type: denies use *Occupational Status:: retired Housing: halfway Household Members: spouse *Travel in the last 8 weeks: None Family Hx:: Unable to obtain Review of Systems - Review of Systems Review of systems:: pertinent systems reviewed and negative unless documented below - Constitutional Denies anorexia, Denies body ache(s), Denies chills, Denies fatigue, Denies fever(s), Denies headache(s), Denies weakness - Eyes Denies change in vision - ENT Denies poor balance, Denies headache(s), Denies mouth pain, Denies nasal congestion, Denies nasal discharge, Denies neck lump, Denies neck pain, Denies pain with swallowing, Denies sore throat, Denies dizziness - *Cardiovascular Denies chest pain, Denies chest pain at rest, Denies shortness of breath, Denies shortness of breath with activity, Denies generalized swelling, Denies shortness of breath when lying down, Denies radiating jaw, neck or arm pain - *Respiratory Denies chest congestion, Denies cough, Denies shortness of breath, Denies pain on inspiration, Denies stridor, Denies wheezing - *Gastrointestinal Denies abdominal pain, Denies change in bowel habits, Denies constipation, Denies loose stools, Denies bright, red blood in stools, Denies black, tarry stools, Denies nausea, Denies vomiting - *Genitourinary Denies blood in urine, Denies urinary incontinence, Denies urinary urgency - *Musculoskeletal Reports abnormal walking, Reports joint pain, Reports limited joint movement, Denies back pain, Denies muscle weakness, Denies body aches, Denies neck pain, Denies numbness, Denies stiffness, Denies tingling - *Neurologic Denies abnormal speech, Denies seizure-like activity, Denies headache(s), Denies lack of coordination, Denies numbness, Denies seizure-like activity, Denies sensory deficit, Denies tingling, Denies dizziness, Denies weakness Meds Home Medications Medication Instructions Recorded Confirm
--- NOTE | 2022-06-15 16:52 | PC.NURSE ---
Addendum entered by Yessenia Tim RN 06/15/22 17:54: POA CALLED BACK AND STATED HE WANTED [facility] TO BE NOTIFIED TO SEE IF THERE IS ANY OPEN BEDS AND IF NOT HE WOULD BE OKAY WITH PT TO HAVE SURGERY HERE AT [facility]. Addendum entered by Yessenia Tim RN 06/15/22 17:32: NOTIFIED PT'S POA AND HE STATED HE WANTED TO CALL AND TALK WITH HIS FATHER AND SISTER BEFORE HE MADE ANY DECISIONS REGARDING HIS MOTHER. HE STATED HE WOULD CALL BACK THIS EVENING TO UPDATE. Original Note: PT IS RESTING IN BED. ALERT AND ORIENTED X2. FAMILY STATES PT HAS PERIODS OF CONFUSION. PT IS ABLE TO ANSWER QUESTIONS. RIGHT HIP IS EXTERNALLY ROTATED. TENDER WITH PALPATION. THE INITIAL PLAN FOR PT WAS TO BE TRANSFERRED TO FOR SURGERY HOWEVER WHEN WAS NOTIFIED THEY STATED BED AVAILABILITY WILL BE SEVERAL DAYS OUT. SOTO STATED FOR PT TO BE NPO AFTER MIDNIGHT AND PT COULD POSSIBLY HAVE SURGERY IN THE MORNING PER AND IF FAMILY IS OKAY WITH PT HAVING THE SURGERY HERE.
[2022-06-16] VITALS (18 sets, daily range): BP systolic 122–168; BP diastolic 49–85; PULSE 67–92; RESP 14–22; TEMP 36.6–43; O2SAT 92–100; BMI 24.7
--- NOTE | 2022-06-16 04:09 | PC.NURSE ---
Patient a&ox2. Patient has confusion at times this is her baseline. Patient complaints of pain to Rt hip x1 medicated per mar. Villeda cath in place draining clear yellow urine. Rt hip is externally rotated and shorter in appearance. Patient family want to reach [facility] to [facility] before having surgery at [facility]. stated bed availability is several days out. Patient has been npo since 0000 r/t possible surgery later today.
--- NOTE | 2022-06-16 07:34 | HMH.ACPN2 ---
Internal Medicine - PN: Subj *Date: 06/16/22 *Time: 16:32 Interval history: No acute events overnight. N.p.o. at midnight for anticipated surgery today. Pain stable. Vitals appropriate. Reviewed labs this morning, stable. Will resume home medications for thyroid and dementia after surgery. Exam Vital signs and Labs for Last 24 Hours: Temp Pulse Resp BP Pulse Ox 98.1 F 67 17 153/68 H 92 L 06/16/22 03:02 06/16/22 03:02 06/16/22 03:02 06/16/22 03:02 06/16/22 03:02 I & O for Last 24 hours: Intake & Output 06/13/22 06/14/22 06/15/22 06/16/22 23:59 23:59 23:59 23:59 Intake Total 2550 / 2550 Output Total 2450 / 2450 800 / 800 Balance 100 / 100 -800 / -800 Weight 61 kg 67.33 kg Microbiology Reports for the Last 24 Hours: Microbiology 06/15/22 02:03 Urine,Catheterized Urine Culture - Preliminary NO GROWTH AFTER 24 HOURS Narrative: - Constitutional no acute distress, obese - *Routine HEENT Exam Head: Present: normocephalic Eye: Present: EOMI, PERRL ENT: Present: mucous membranes moist - *Routine Neck Exam Present: supple. Absent: lymphadenopathy - *Routine Respiratory Exam Present: CTA bilaterally - *Routine Cardiovascular Exam Present: RRR, murmur - *Routine Abdominal Exam Present: soft, normoactive bowel sounds. Absent: tenderness - *Routine Extremities Exam No cyanosis, clubbing, edema; Right leg is foreshortened and externally rotated. - *Routine Skin Exam Present: warm. Absent: rash - *Routine Neurological Exam Present: alert, Patient is oriented x2. Is a little bit confused about her location but is able to be oriented once again. Seems to be accurately reporting her symptoms of pain and recent medical history. Assessment and Plan (1) Mild cognitive impairment Status: Acute Category: Medical Code(s): G31.84 - Mild cognitive impairment, so stated (2) Mild aortic stenosis Status: Acute Category: Medical Code(s): I35.0 - Nonrheumatic aortic (valve) stenosis (3) Hip fracture Status: Acute Qualifiers: Encounter type: initial encounter Fracture type: closed Laterality: right Qualified Code(s): S72.001A - Fracture of unspecified part of neck of right femur, initial encounter for closed fracture Category: Medical Code(s): S72.009A - Fracture of unspecified part of neck of unspecified femur, initial encounter for closed fracture (4) Hypothyroidism Status: Chronic Category: Medical Code(s): E03.9 - Hypothyroidism, unspecified (5) Essential hypertension Status: Chronic Category: Medical Code(s): I10 - Essential (primary) hypertension - Assessment and plan all Dx Assessment and Plan for all problems:: 81-year-old female with right femoral/hip fracture. Orthopedics consulted. Needs surgical correction, family wavering between procedure being done at [facility] versus tertiary care center. Orthopedics assisting with reaching out to other facilities. [facility] is not an option due to weight, family requesting consulting [facility] to see if they can get her in sooner, if not proceed with surgery today. Problems addressed as follows: Mild aortic stenosis -valve area is not in the critical range. I do not believe this would compromise plan for surgery. Patient has good cardiac function at the personal-group home per staff reports. Right femoral/hip fracture. - Orthopedic consultation. Planning for operative intervention today barring ability to transfer. Delaying surgery only increases her complication risk. -Patient optimized for surgery. Mild cognitive impairment. Stable. Continue current medications. Full code Continues to require inpatient management. Anticipate referral back to [place] after surgery for therapy
[2022-06-16 08:31] LABS: Basophils # 0.1 K/mm3 (0-0.2); Basophils % 0.5 % (0.1-2.0); Eosinophils # 0.3 K/mm3 (0.0-0.4); Eosinophils % 2.7 % (0.1-12.0); Hematocrit 34.5 % (37.0-47.0); Hemoglobin 10.6 g/dL (12.2-16.2); Lymphocytes # 1.8 K/mm3 (0.7-4.5); Lymphocytes % 18.3 % (10-50); Mean Corpuscular HGB Conc 30.9 g/dL (31.8-35.4); Mean Corpuscular Hemoglobin 28.4 pg (27.0-31.2); Mean Corpuscular Volume 91.9 fl (81-99); Mean Platelet Volume 9.8 fl (7.4-10.4); Monocytes # 0.6 K/mm3 (0.1-1.0); Neutrophils # 7.2 K/mm3 (1.8-7.8); Neutrophils % 72.6 % (37.0-80.0); Platelet Count 194 K/mm3 (142-424); Red Blood Count 3.75 M/mm3 (4.20-5.40); Red Cell Distribution Width 15.3 % (11.5-17.5); White Blood Count 9.9 K/mm3 (4.8-10.8)
[2022-06-16 08:41] LABS: Chloride 103 mmol/L (98-107); Sodium 131 mmol/L (136-145)
[2022-06-16 08:42] LABS: Potassium 4.1 mmoL/L (3.5-5.1)
[2022-06-16 08:45] LABS: Anion Gap 6.1 mEq/L (5-15); Blood Urea Nitrogen 12 mg/dl (7-17); Calcium 8.4 mg/dl (8.4-10.2); Carbon Dioxide 26 mmol/L (22.0-30.0); Creatinine Clearance Estimated 45 mL/min (50-200); Estimated Glomerular Filt Rate 95 ml/min (>60); GFR (African American) 116 ML/MIN (>60); Glucose 159 mg/dl (74-100)
--- NOTE | 2022-06-16 08:52 | PC.NURSE ---
rounds made with md. he is aware home meds haven't been restarted as of now. did also mention thyroid levels to md. order placed to restart synthroid, with plan to look at home meds after surgery.
--- NOTE | 2022-06-16 09:38 | PC.NURSE ---
Rounded on this pt, cleaned and straightened room. Pt resting in bed, npo at this time due to possible surgery.
--- NOTE | 2022-06-16 11:01 | DIET.NUTRFU ---
Addendum entered by Leyla Ocampo RD, LD 06/16/22 15:03: Patient did eat 75% of dinner last night due to sx postponed and nursing will review that for tonights dinner also. Original Note: Patient continues NPO status since admit on 06/15, waiting for sx. Family/patient is scheduled for hip sx either here at [facility] or transfer. If cannot perform sx today, consider upgrading date until a sx date is set. RD will follow
--- NOTE | 2022-06-16 11:46 | P.PN_ITS ---
[facility] Anesthesia Record Part I Intake, IV Amount: 800 Estimated blood loss (mL): 0 Urine output (mL): 0 Blood Pressure: 105/64 SaO2: 94 Pulse Rate: 59 Respiratory Rate: 12 Temperature: 97.6 F Patient is:: Drowsy Stable to PACU at:: 11:45
--- NOTE | 2022-06-16 13:21 | PC.NURSE ---
CARMEL FROM [facility] STATED SHE TALKED TO PT'S SON THIS MORNING AND HE STATED HE WANTED US TO ATTEMPT GETTING PT A BED AT [facility] FOR SURGERY. CARMEL STATED SHE TALKED TO THEM AND WAS WAITING TO GET A CALL BACK TO SEE IF PT COULD BE EXCEPTED AND IF THERE WAS AN AVAILABLE BED.
--- NOTE | 2022-06-16 17:57 | PC.NURSE ---
PT HAS BEEN NPO T/O SHIFT, JENKINS IN PLACE. ALERT X4. REPORTED PAIN IN THE AM RELIEVED BY PRESCRIBED PAIN MED. SON AND DAUGHTER AT BEDSIDE, PT WENT DOWN TO SURGERY AT 1710.
--- NOTE | 2022-06-16 20:22 | HMH.OPNOTE ---
Date of procedure: 06/16/22 Pre-op Diagnosis:: Right intertrochanteric femur fracture with segmental femoral neck fracture Post-op Diagnosis:: Same Procedure performed:: 40856: Open treatment femoral neck fracture with bipolar hemiarthroplasty 62199: Open reduction internal fixation right greater trochanteric femur fracture Surgeon:: Aaron Davis MD Superintendent Cemetery(s):: MD Elina Arora PA-C Anesthesia: spinal Estimated blood loss (mL): 200 Operative findings:: Comminuted proximal femur fracture. Symmetric leg lengths, stable to greater than 60 degrees internal rotation with hip flexed to 90 degrees, stable in sleeper position, stable to shuck test Operative note:: 81-year-old female sustained right comminuted intertrochanteric femur fracture with segmental femoral neck fracture as a result of ground-level fall. Attempts to transfer her to a tertiary referral center including [facility] and [facility] were unsuccessful. Dr. Davis and I had a discussion with her family regarding further management. In order for pain control and allow for early mobilization, we recommended hip hemiarthroplasty with open reduction internal fixation of her greater trochanter fracture. Her family was amenable with the plan. We discussed the risk and benefits of surgery. Risks included but were not limited to pain, bleeding, infection, damage to adjacent structures, need for further surgery, wound healing complications, nonunion, malunion, periprosthetic fracture, prosthetic hip dislocation, loss of limb, . Patient's POA expressed verbal consent and written consent was obtained for the above procedures. My presence as human resource assistant for this procedure was necessary given the complex nature of the fracture in order to assist with retraction and reduction. Patient was identified in preoperative holding. Operative site was marked in indelible ink. History, physical, consent were reviewed and updated. Patient was surrendered to the anesthesia team, taken to the operative suite. Anesthesia was induced. Patient was then placed in the lateral decubitus position on a well-padded operative table. All bony prominences were padded and an axillary roll was placed. The operative extremity was prepped and draped in the usual sterile fashion. The operative team donned sterile gowns and gloves and a timeout was called. All in attendance agreed regarding the patient's identity, procedure, operative site. Weight-based dose of antibiotics was given prior to incision. A skin maker was then used to jah all bony prominences. Skin incision was then carried out extending from the greater trochanter in a curvilinear fashion posteriorly across the buttocks. I incised the skin with a scalpel, then using a Bovie dissected through tissues. The fascia jama was incised utilizing Metzenbaum scissors. This was taken down to the bursa, which was removed utilizing a rongeur. Utilizing a periosteal elevator as well as the sponge, the fat was then freed from the short external rotators of the left hip after these were placed and stretched. The sciatic nerve was protected. Bovie was used to remove the short external rotators from the greater trochanter, which revealed the joint capsule. His were tagged for later repair. The capsule was cleared and incised utilizing a T-shape incision. A fracture hematoma was noted upon entering the joint capsule as well as the femoral neck fracture. A cork screw was then used to remove the fractured femoral head, which was given to the lab technician which was sized on the back table. All bony remnants were then removed from the acetabulum and surrounding soft tissue with a rongeur. Acetabulum was then inspected and found to be clear. The femoral shaft was reamed, trial stem was placed and the hip was trialed, found to be stable. The final stem was placed in the proximal components were trialed once again and found to be stable
--- NOTE | 2022-06-16 20:33 | XR_ITS ---
PROCEDURE INFORMATION: Exam: XR Right Hip Exam date and time: 06/16/2022 9:47 PM Age: 81 years old Clinical indication: Device placement; Other: Total hip; Prior surgery; Surgery date: Post-operative (0-2 days); Additional info: Postop TECHNIQUE: Imaging protocol: Radiologic exam of the Right hip. Views: 2 or 3 views hip with pelvis when performed. COMPARISON: CT HIP RT WO CON 06/15/2022 2:45 AM FINDINGS: Bones/joints: Total right hip arthroplasty device in place. No hardware complications. No acute fracture or dislocation. Villeda catheter. Soft tissues: There is soft tissue gas in the right hip soft tissues likely postsurgical in nature. IMPRESSION: Postsurgical changes. No acute findings in the right hip.
--- NOTE | 2022-06-16 21:19 | HMH.ANESI ---
[facility] Anesthesia Record Part I Intake, IV Amount: 1,300 Estimated blood loss (mL): 300 Urine output (mL): 300 Blood Pressure: 122/49 SaO2: 93 Pulse Rate: 77 Respiratory Rate: 14 Temperature: 97.8 F Patient is:: Stable Stable to PACU at:: 21:15
--- NOTE | 2022-06-16 21:47 | P.OP_ITS ---
Date of procedure: 06/16/22 Pre-op Diagnosis:: Closed, comminuted, displaced segmental femoral neck fracture, right Post-op Diagnosis:: Same Procedure performed:: 1.? Uncemented longstem bipolar hemiarthroplasty, right hip 2.? Open reduction and trochanteric cardiac nurse plate fixation proximal femur, right Surgeon:: Aaron Davis MD Director Of Fundraising(s):: 1. Bharat Luna MD (The assistance of Dr. Luna was required given the complexity and difficulty of the case. A second surgeon is required due to the level of complexity of the fracture, osteoporosis, patient's age and comorbidities and the difficulty of managing this complex fracture in an elderly patient.) 2. Elina Pruitt PA-C HOSPITAL TELEVISION RENTAL CLERK:: Other (Osmin Garcia) Anesthesia: spinal Estimated blood loss (mL): 300 Clinical Note:: Patient is an 81-year-old female who sustained a grossly comminuted segmental right femoral neck fracture as a result of ground-level fall. Attempts to transfer her to a tertiary referral center including [facility] and [facility] were unsuccessful. Dr. Luna and I had a discussion with her family regarding further management. In order for pain control and allow for early mobilization, we recommended right hip hemiarthroplasty with a long revision stem along with open reduction internal fixation of her greater trochanter fracture. Her family was amenable with the plan. We discussed the risk and benefits of surgery. Risks included but were not limited to pain, bleeding, infection, damage to adjacent structures, need for further surgery, wound healing complications, nonunion, malunion, periprosthetic fracture, prosthetic hip dislocation, loss of limb, . Patient's POA expressed verbal consent and written consent was obtained for the above procedures. Please refer to orthopedic consult and progress notes for full details. Operative findings:: Comminuted, displaced, unstable right proximal femur fracture as noted on the preoperative hip imaging.? The fracture is grossly comminuted with extension from the subcapital femoral neck through the intertrochanteric area and to the subtrochanteric femoral shaft.? The articular cartilage of the acetabulum is well preserved without evidence of any significant arthritic changes. The proximal femur bone quality is soft/osteoporotic. Operative note:: Implants: [place] Sabianist Modular hip system Conical Distal Stem, 16 mm x 155 mm Den Sabianist Modular hip system Cone Body, 23mm x +20 [place] UHR universal head bipolar component- 46 mm outer diameter/28 mm inner diameter [place] Biolox delta ceramic head V 40 femoral head, size 28 mm x + 0 mm neck length Den Vidal-Ernie trochanteric cardiac nurse plate medium/150 mm [place] 2 mm Vidal-Ernie beaded cable and sleeve set x4 ([employer] inbound customer service representative: Torey Torres and Virgil Simmons from [employer]) Condition: stable Disposition: PACU Specimens:: None Complications:: None
--- NOTE | 2022-06-16 22:06 | PC.NURSE ---
PT BACK TO FLOOR VIA BED FROM OR W/STAFF @ THIS TIME
--- NOTE | 2022-06-16 22:17 | SUR.PHASEI ---
2154 called and gave detailed report to aric Leger/surgical supplies sterilizer 2199 transported via bed to med/surg room. vital signs stable. denies pain. states she is freezing cold. covered with blankets. left pt in stable condition with aric Leger/surgical supplies sterilizer at bedside.
[2022-06-17] VITALS (17 sets, daily range): BP systolic 130–163; BP diastolic 56–72; PULSE 68–101; RESP 18; TEMP 36.5–37.6; O2SAT 93–96; BMI 25.5
--- NOTE | 2022-06-17 05:10 | PC.NURSE ---
Patient has been a&0 x3 with intermitted confusion. Patient had hemiarthroplasty of the right hip with open reduction and trochanteric rn endoscopy plate fixation proximal femur, right yesterday. Patient has been recovering well. VSS acceptable. Patient was placed on 3l nc for sat support tolerating well with sats above 90%. Dressing to the right hip is CDI. Abduction pillow in place. Patient has complaint of some moderate pain medicated per mar. Villeda cath in place draining clear yellow urine. Pedal pulses 2+ bilaterally. Scudds applied to unaffected lt leg.
[2022-06-17 06:52] LABS: Basophils % 0.2 % (0.1-2.0); Eosinophils % 0.1 % (0.1-12.0); Hematocrit 31.2 % (37.0-47.0); Lymphocytes # 0.8 K/mm3 (0.7-4.5); Lymphocytes % 6.1 % (10-50); Mean Corpuscular HGB Conc 30.5 g/dL (31.8-35.4); Mean Corpuscular Hemoglobin 28.6 pg (27.0-31.2); Mean Corpuscular Volume 93.8 fl (81-99); Mean Platelet Volume 10.2 fl (7.4-10.4); Monocytes # 0.6 K/mm3 (0.1-1.0); Monocytes % 5.2 % (1.7-9.3); Neutrophils # 10.8 K/mm3 (1.8-7.8); Neutrophils % 88.4 % (37.0-80.0); Platelet Count 242 K/mm3 (142-424); Red Blood Count 3.33 M/mm3 (4.20-5.40); Red Cell Distribution Width 15.4 % (11.5-17.5); White Blood Count 12.2 K/mm3 (4.8-10.8)
[2022-06-17 06:55] LABS: Chloride 105 mmol/L (98-107); MANUAL DIFFERENTIAL MANUAL DIFFERENTIAL (MANUAL DIFF); Sodium 131 mmol/L (136-145)
[2022-06-17 06:57] LABS: Blood Urea Nitrogen 12 mg/dl (7-17); Creatinine Clearance Estimated 47 mL/min (50-200); Estimated Glomerular Filt Rate 80 ml/min (>60); GFR (African American) 97 ML/MIN (>60)
[2022-06-17 06:58] LABS: Alanine Aminotransferase 16 U/L (12-78); Albumin Level 2.6 g/dl (3.5-5.0); Albumin/Globulin Ratio 0.9 (1.1-1.8); Alkaline Phosphatase 73 U/L (38-126); Aspartate Amino Transferase 30 U/L (14-36); Bilirubin,Total 0.1 mg/dl (0.2-1.3); Calcium 8.3 mg/dl (8.4-10.2); Globulin 2.8 g/dL (1.3-3.2); Glucose 196 mg/dl (74-100); Magnesium 1.8 mg/dl (1.6-2.3); Total Protein,Serum 5.4 g/dl (6.3-8.2)
[2022-06-17 07:28] LABS: Anisocytosis 1+; Hypochromasia 1+; Lymphocytes % 19 % (10-50); Monocytes % 4 % (2-9); Neutrophils % 77 % (42-76); Platelet Estimate Normal; Total Cells Counted 100
[2022-06-17 07:31] LABS: Hemoglobin 9.5 g/dL (12.2-16.2)
--- NOTE | 2022-06-17 07:51 | HMH.ANESII ---
[facility] Anesthesia Record Part II Discharge Time: 22:00 Destination: Medical Surgical Department PACU nurse assessment reviewed?: Yes Patient Condition:: Good Anesthesia Complications:: None Swallowing reflex intact?: Yes Cyanosis?: No Blood Pressure: 130/56 Pulse Rate: 80 Temperature: 97.8 F Mental Status: Alert & Oriented Pain level:: 0 Nausea and/or vomitting:: None Intake, IV Amount: 0
--- NOTE | 2022-06-17 08:40 | HMH.ACPN2 ---
Internal Medicine - PN: Subj *Date: 06/17/22 *Time: 08:40 Interval history: Patient is status post ORIF of right femur fracture. Operative notes reviewed. Patient is awake, pleasant, wishes to go home. Denies complaints. Did have oxygen placed last night because of saturations in the low 90% range. Denies shortness of air this morning Exam Vital signs and Labs for Last 24 Hours: Temp Pulse Resp BP Pulse Ox 98.8 F 101 H 18 158/68 H 93 L 06/17/22 08:00 06/17/22 08:00 06/17/22 08:00 06/17/22 08:00 06/17/22 08:00 Laboratory Results - last 24 hr 06/16/22 08:20: Sodium 131 L, Potassium 4.1, Chloride 103, Carbon Dioxide 26, Anion Gap 6.1, BUN 12 D, Creatinine 0.60 D, Estimated Creat Clear 45, Estimated GFR 95, Est GFR ( Amer) 116 D, Glucose 159 H, Calcium 8.4 06/16/22 17:15: Blood Type O Positive, Antibody Screen Negative 06/17/22 06:34: WBC 12.2 H, RBC 3.33 L, Hgb 9.5 L D, Hct 31.2 L, MCV 93.8, MCH 28.6, MCHC 30.5 L, RDW 15.4, Plt Count 242, MPV 10.2, Neut % (Auto) 88.4 H, Lymph % (Auto) 6.1 L, [place] % (Auto) 5.2, Eos % (Auto) 0.1, Baso % (Auto) 0.2, Neut # (Auto) 10.8 H, Lymph # (Auto) 0.8, [place] # (Auto) 0.6, Eos # (Auto) 0.0, Baso # (Auto) 0.0, Total Counted 100, Neutrophils % (Manual) 77 H, Lymphocytes % (Manual) 19, Monocytes % (Manual) 4, Platelet Estimate Normal, Hypochromasia 1+, Anisocytosis 1+ 06/17/22 06:34: Sodium 131 L, Potassium 4.0, Chloride 105, Carbon Dioxide 24, BUN 12, Creatinine 0.70, Estimated Creat Clear 47, Estimated GFR 80, Est GFR ( Amer) 97, Glucose 196 H D, Calcium 8.3 L, Magnesium 1.8, Total Bilirubin 0.1 L, AST 30, ALT 16 D, Alkaline Phosphatase 73, Total Protein 5.4 L D, Albumin 2.6 L, Globulin 2.8, Albumin/Globulin Ratio 0.9 L I & O for Last 24 hours: Intake & Output 06/14/22 06/15/22 06/16/22 06/17/22 11:59 11:59 11:59 11:59 Intake Total 1500 / 1500 1850 / 1850 2170 / 2170 Output Total 950 / 950 2300 / 2300 1800 / 1800 Balance 550 / 550 -450 / -450 370 / 370 Weight 134 lb 7.712 oz 148 lb 6.996 oz 153 lb 5 oz Microbiology Reports for the Last 24 Hours: Microbiology 06/15/22 02:03 Urine,Catheterized Urine Culture - Final Escherichia coli Narrative: Patient is pleasant, talkative, oriented x2. Anterior lung garcia are clear, heart rate regular. Abdomen soft. Lower extremities are warm and well-perfused. Able to wiggle her toes without pain. She is in a wedge pillow device. Assessment and Plan (1) Mild cognitive impairment Status: Acute Category: Medical Code(s): G31.84 - Mild cognitive impairment, so stated (2) Mild aortic stenosis Status: Acute Category: Medical Code(s): I35.0 - Nonrheumatic aortic (valve) stenosis (3) Hip fracture Status: Acute Qualifiers: Encounter type: initial encounter Fracture type: closed Laterality: right Qualified Code(s): S72.001A - Fracture of unspecified part of neck of right femur, initial encounter for closed fracture Category: Medical Code(s): S72.009A - Fracture of unspecified part of neck of unspecified femur, initial encounter for closed fracture (4) Hypothyroidism Status: Chronic Category: Medical Code(s): E03.9 - Hypothyroidism, unspecified (5) Essential hypertension Status: Chronic Category: Medical Code(s): I10 - Essential (primary) hypertension - Assessment and plan all Dx Assessment and Plan for all problems:: 1. Status post ORIF-seems to be doing well. PT evaluation today. Patient will need to be transferred back to her long-term care facility on the skilled side. There is a bed available according to care management 2. Oxygen requirement. Mild fluid overload on exam. Lasix 40 mg IV x1 today. 3. Hemoglobin at 9.5 g this morning. Probably postoperative phenomenon. Recheck tomorrow. No indication for transfusion at this point.
--- NOTE | 2022-06-17 08:44 | HMH.ORTHPN ---
Subjective Date: 06/17/22 Time: 08:20 Principal diagnosis: right segmental femoral neck fracture Interval history: Patient is an 81-year-old female who underwent an uneventful right hip uncemented longstem bipolar hemiarthroplasty and open reduction and trochanteric assembler crimper plate fixation of the proximal femur yesterday evening performed by Dr. Davis and Dr. Luna. Today the patient is postop day #1. This morning she is sitting up comfortably in bed. She reports some right hip pain as to be expected but states that it is well controlled with as needed pain medication and rest. She reports that she was able to get some sleep last night. She states that she has had little to eat and reports that she does not have much of an appetite, but denies any episodes of nausea or vomiting. No history of any distal tingling/numbness. She has not yet ambulated. She denies any history of fevers, chills, or rigors. She denies any other symptoms or concerns at this time. PN: Obj Ex Vital signs: Temp Pulse Resp BP Pulse Ox 98.8 F 101 H 18 158/68 H 93 L 06/17/22 08:00 06/17/22 08:00 06/17/22 08:00 06/17/22 08:00 06/17/22 08:00 - Constitutional no acute distress, cooperative - Routine HEENT Exam Head: Present: normocephalic, atraumatic Eye: Present: EOMI, PERRL ENT: Present: mucous membranes moist - Routine Neck Exam Present: supple, full ROM, trachea midline. Absent: JVD, lymphadenopathy - Routine Respiratory Exam Absent: accessory muscle use, respiratory distress Comments: Symmetric chest movement, able to speak in complete sentences - Routine Cardiovascular Exam Present: RRR Comments: Normal peripheral pulses - Routine Abdominal Exam Present: soft. Absent: tenderness - Routine Extremities Exam Comments: Upon examination of the lower extremities: The limb lengths are equal. Upon examination of the right hip, dressings present are clean, dry, and intact. No evidence of drainage or bleeding noted. The right hip and proximal femur are tender to palpation. Attempted movements of the right hip are somewhat painful. Thigh and calf are soft and nontender; Homans' sign is negative. No clinical evidence of DVT or compartment syndrome noted. Posterior tibial pulse 1+; capillary refill is brisk. Sensation to light touch is grossly intact throughout. Patient is actively mobilizing the foot, ankle, and toes. Diagnostic imaging: Postoperative x-ray performed at [facility] on 06/16/2022 reviewed along with radiologist report and compared to previous imaging. X-ray of the right hip demonstrates a right hemiarthroplasty and trochanteric assembler crimper plate fixation of the proximal femur with orthopedic components in satisfactory alignment and fixation. No evidence of orthopedic complications noted. Radiologist report is as follows: FINDINGS: Bones/joints: Total right hip arthroplasty device in place. No hardware complications. No acute fracture or dislocation. Villeda catheter. Soft tissues: There is soft tissue gas in the right hip soft tissues likely postsurgical in nature. IMPRESSION: Postsurgical changes. No acute findings in the right hip. - Routine Skin Exam Present: intact, warm, normal turgor. Absent: cyanosis, erythema, lesions, jaundice - Routine Neurological Exam Present: alert, CN II-XII intact, moving all extremities, normal tone, normal speech. Absent: sensory deficit, motor deficit - Routine Psychiatric Exam Present: normal affect, cooperative - Urinary Catheter Management Villeda Cath placed during this visit: no Urethral indwelling: Yes Progress Note: A&P (1) Mild cognitive impairment Status: Acute (2) Mild aortic stenosis Status: Acute (3) Hip fracture Status: Acute (4) Hypothyroidism Status: Chronic (5) Essential hypertension Status: Chronic Assessment and Plan for All Diagnos
--- NOTE | 2022-06-17 10:16 | P.PN_ITS ---
[facility] Anesthesia Checklist - Structural Data Admitted From: Inpatient Planned Operative Procedure/s: Right Hip ORIF Consent for Planned Operative Procedure(s) Verified: Yes Verified Documents: Surgical Consent - NPO Status Verified Time NPO: 00:00 - Chart Verification Results Verified: CBC, BMP - Additional verifications Anesthesia Reactions: No - Airway Assessment C-Spine Mobility Assessed: Yes TMJ Mobility Assessed: Yes Dentition: Good Dentition - Neurological Assessment Level of Consciousness: Awake, Alert, Appropriate - Anesthesia Plan Anesthesia Risk discussed: Yes ASA Class: III Anesthesia Type: Spinal [facility] History I have reviewed the patient's past medical history: Yes Medical History: Reports:: Chronic Obstructive Pulmonary Disease (COPD), Gastroesophageal Reflux Disease(GERD), Hyperlipidemia, Hypertension, Migraine Denies:: Cancer, Diabetes Mellitus Type 1, Diabetes Mellitus Type 2, Internal Pacemaker, MRSA, Seizures *Have you ever received a pneumonia vaccine?: No *Have you received a flu vaccine this season?: No Anesthesia experience/problems:: none Other Surgeries: No: Pacemaker Amputation: No Fractures: No - *Social History Smoking Status: Unknown if ever smoked Alcohol Intake: never Substance Use Type: denies use *Occupational Status:: retired Housing: intermediate Household Members: spouse *Travel in the last 8 weeks: None Family Hx:: Unable to obtain
--- NOTE | 2022-06-17 11:11 | HMH.PTEV ---
Physical Therapy Evaluation Rehab PT IP Evaluation Start: 06/16/22 22:01 Freq: ONCE Status: Active Protocol: Document 06/17/22 10:55 MARYJO (Rec: 06/17/22 11:11 [email or web address] [id number]) Subjective/History History History This is the initial IP PT eval for Delfina Willis, an 81 y/o female underwent ORIF of R femur, posterior approach w/ bipolar hemiarthroplasty. Pt had a fall onto her R hip, sustained right intertrochanteric femur fracture with segmental femoral neck fracture. Pt has h/o COPD, GERD, hyperlipidemia , and hypertension. Written by Donna Rojas, SPT Subjective Subjective Pt lives w/ at personal [facility]. Pt used a walker prior to admission. Pt had 5/10 pain sitting in recliner, which increased when bending involved leg and attempting STS. Rehab PT IP Eval Objective Appearance Patient Behavior Appropriate,Cooperative Patient Orientation Person,Place,Time,Name,Year, Time of Day,Situation Difficulty following instructions none Speech Pattern Clear,Appropriate,Coherent Ambulation Patient Able to Ambulate No Balance Ability to Arise Unable Sitting Balance Steady, safe Standing Balance Unsteady Dynamic Sitting Balance Ability Fair Dynamic Standing Balance Ability Zero Transfers Chair Transfer Ability Moderate x 2 (50% assist) Sit to Stand Chair Transfer Ability Moderate x 2 (50% assist) ROM RLE PT ROM Status ABN Abnormal ROM Comment 2nd to pain and sx/orthopedic precautions MMT RLE PT MMT ABN Abnormal MMT Grade 2nd to pain and sx Rehab PT IP prob,goals,plan Problems Date of Evaluation: 06/17/22 PT IP Problems Bed Mobility,Transfers,Gait, Balance,Self care,Safety Rehab Potential Rehab Potential Fair Equipment Needs Assistive Devices Rolling / Wheeled Walker Plan PT Intervention Plan Bed Mobility,Transfers,Gait, Balance,Self care,Safety, Therapeutic Exercise PT Plan Frequency BID Duration
--- NOTE | 2022-06-17 11:25 | HMH.OTEV ---
OT Inpatient Evaluation Rehab OT IP Evaluation Start: 06/16/22 22:01 Freq: ONCE Status: Complete Protocol: Document 06/17/22 11:15 YUKO (Rec: 06/17/22 11:25 YUKO [id number]) Rehab OT IP Assessment Subjective History Date of procedure: 06/16/22 Procedure performed:: 1.? Uncemented longstem bipolar hemiarthroplasty, right hip 2.? Open reduction and trochanteric balancing machine operator plate fixation proximal femur, right Textile Screen Maker(s):: 1. Bharat Luna MD (The assistance of Dr. Luna was required given the complexity and difficulty of the case. A second surgeon is required secondary to the level of complexity of the fracture, osteoporosis, patient's age and comorbidities and the difficulty of managing this complex fracture in an elderly patient.) 81-year-old female sustained right comminuted intertrochanteric femur fracture with segmental femoral neck fracture as a result of ground-level fall. Attempts to transfer her to a tertiary referral center including [facility] and [facility] were unsuccessful. Dr. Davis and I had a discussion with her family regarding further management. In order for pain control and allow for early mobilization, we recommended hip hemiarthroplasty with open reduction internal fixation of her greater trochanter fracture. Her family was amenable with the plan. We discussed the risk and benefits of surgery. Risks included but were not limited to pain, ble
[2022-06-17 11:49] LABS: Carbon Dioxide 24 mmol/L (22.0-30.0)
--- NOTE | 2022-06-17 13:35 | PC.NURSE ---
patient's daughter came out of room and said if her mother asked for rings bj has them
--- NOTE | 2022-06-17 14:02 | PC.NURSE ---
rounded on patient. dr mckeon at bedside. explaining hip care and follow up. possible plan for dc tomorrow, and family aware of plan. updated patient daughter as a contact. Stated that poa didn't want to be called today unless absolutely necessary, because he was asleep (works rn shift mgr). patient and family had no complaints, concerns or questions. encouraged them to ring out with any. no needs voiced. patient up to chair.
--- NOTE | 2022-06-17 17:55 | PC.NURSE ---
Pt's 02 turned to 1 L NC. VSS. NAD. A/O x 4. No changes since prior assessment. CB in reach. Pt has been up to chair with pt. Abductor pillow in use. dsg cdi to R hip. Meds given per dec.
[2022-06-18 03:50] VITALS: BP 153/70; PULSE 65; RESP 17; TEMP 36.6; O2SAT 96
--- NOTE | 2022-06-18 04:49 | PC.NURSE ---
Patient has been A&o x3 with intermitted confusion. Moderate pain reported of the Rt hip. Patient able to transfer to BSC with 2x assist. Patient tolerated RA before applying cpap for the night. New Iv placed this shift.
[2022-06-18 05:02] VITALS: BMI 26.1
[2022-06-18 06:53] LABS: Chloride 100 mmol/L (98-107); Potassium 3.8 mmoL/L (3.5-5.1)
[2022-06-18 06:54] LABS: Sodium 132 mmol/L (136-145)
[2022-06-18 06:57] LABS: Anion Gap 5.8 mEq/L (5-15); Blood Urea Nitrogen 16 mg/dl (7-17); Calcium 8.8 mg/dl (8.4-10.2); Carbon Dioxide 30 mmol/L (22.0-30.0); Creatinine Clearance Estimated 48 mL/min (50-200); Estimated Glomerular Filt Rate 69 ml/min (>60); GFR (African American) 83 ML/MIN (>60); Glucose 176 mg/dl (74-100)
[2022-06-18 07:00] LABS: Basophils % 0.2 % (0.1-2.0); Eosinophils # 0.1 K/mm3 (0.0-0.4); Eosinophils % 0.4 % (0.1-12.0); Hematocrit 26.5 % (37.0-47.0); Lymphocytes # 1.3 K/mm3 (0.7-4.5); Lymphocytes % 9.5 % (10-50); Mean Corpuscular HGB Conc 31.3 g/dL (31.8-35.4); Mean Corpuscular Hemoglobin 28.4 pg (27.0-31.2); Mean Corpuscular Volume 90.7 fl (81-99); Mean Platelet Volume 10.2 fl (7.4-10.4); Monocytes # 0.6 K/mm3 (0.1-1.0); Monocytes % 4.6 % (1.7-9.3); Neutrophils # 11.9 K/mm3 (1.8-7.8); Neutrophils % 85.4 % (37.0-80.0); Platelet Count 237 K/mm3 (142-424); Red Blood Count 2.92 M/mm3 (4.20-5.40); Red Cell Distribution Width 15.3 % (11.5-17.5)
[2022-06-18 07:03] LABS: Hemoglobin 8.3 g/dL (12.2-16.2); MANUAL DIFFERENTIAL MANUAL DIFFERENTIAL (MANUAL DIFF)
[2022-06-18 07:42] LABS: Lymphocytes % 12 % (10-50); Monocytes % 2 % (2-9); Neutrophils % 86 % (42-76); Platelet Estimate Normal; RBC Morphology Normal; Total Cells Counted 100
[2022-06-18 08:00] VITALS: BP 139/67; PULSE 86; RESP 24; TEMP 37.2; O2SAT 94
--- NOTE | 2022-06-18 08:23 | HMH.DCSUM ---
General - General Admission date:: 06/15/22 Discharge date: 06/18/22 HPI HPI: 81-year-old female who lives with her at a local personal assisted. She normally is very functional. Has mild memory loss with moderate cognitive impairment but normally gets around on her own. She reports that she just fell. She fell on her right hip, was unable to ambulate and had a foreshortened lower extremity was brought to the emergency department where fracture of the proximal right femur was demonstrated on x-ray and CT scan. She is admitted to hospital for operative intervention and orthopedic consultation. She denies chest pain, shortness of air, palpitations or dizziness, but does not really have a clear answer for why she fell. Denies recent leg swelling and reports that her functional status although limited at the personal-assisted is good. Hospital Course Hospital Course: Patient was admitted. After several consultations with orthopedics, it was deemed appropriate to have her surgery here and both of her orthopedic surgeons were involved in the complex case. Please refer to op notes and orthopedic consultation for details. The patient did very nicely with the surgery. The following day PT evaluated her, recommended PT program on an ongoing basis. Postoperatively patient received some Lasix and was able to be weaned off oxygen with good diuresis from OR related fluid administration. She did however have a drop in her hemoglobin from her baseline down to 8.3 this morning. I believe this is postoperative and I do not believe transfusion is indicated. I do not think this will preclude her going back to her skilled care facility today but I would like a CBC and a BMP drawn tomorrow to make sure she will not need further evaluation or transfusion. Nurses reported no evidence of GI bleeding or other significant bruising. This morning she is up in a chair, feeling well, breathing easily on room air and she will be transferred back to her previous long-term care facility but she will be on the skilled care side. Please note she will need PT/OT evaluation. Please note that I will increase her levothyroxine dose to 75 mcg daily as her TSH here was slightly elevated. Otherwise she will be on Tylenol for pain, 1000 mg 3 times daily as needed Follow-up will be per our per [facility] rounds and she will see orthopedic clinic in 1 week. Please note she will also be on Xarelto 10 mg daily for the next 30 days and then this will be discontinued for DVT prophylaxis postoperatively. Also please note I like a CBC and BMP tomorrow on June 19 to follow her anemia and kidney function respectively Objective Vital signs: Temp Pulse Resp BP Pulse Ox 98.9 F 86 24 139/67 94 L 06/18/22 08:00 06/18/22 08:00 06/18/22 08:00 06/18/22 08:00 06/18/22 08:00 no acute distress Comments: Pleasant, talkative, moderately demented - *Routine HEENT Exam Head: Present: normocephalic Eye: Present: EOMI, PERRL ENT: Present: mucous membranes moist - *Routine Neck Exam Present: supple - *Routine Respiratory Exam Present: CTA bilaterally - *Routine Cardiovascular Exam Present: RRR - *Routine Abdominal Exam Present: soft, normoactive bowel sounds. Absent: tenderness - *Routine Extremities Exam Absent: cyanosis, clubbing, edema Comments: Wound exam notes per orthopedics - *Routine Skin Exam Present: warm. Absent: rash - Detailed Eye Exam Eyelids: Bilateral normal inspection Results Labs on day of discharge: Labs from last 24 hours 06/18/22 06/18/22 06/17/22 06:13 06:13 06:34 WBC 14.0 H RBC 2.92 L Hgb 8.3 L D Hct 26.5 L MCV 90.7 MCH 28.4 MCHC 31.3 L RDW 15.3 Plt Count 237 MPV 10.2 Neut % (Auto) 85.4 H Lymph % (Auto) 9.5 L [place] % (Auto) 4.6 Eos % (Auto) 0.4 Baso % (Auto) 0.2 Neut # (Auto) 11.9 H Lymph # (Auto) 1.3 [place] # (Auto
--- NOTE | 2022-06-18 08:34 | HMH.ORTHPN ---
Subjective Date: 06/18/22 Time: 08:25 Principal diagnosis: right segmental femoral neck fracture Interval history: Patient is an 81-year-old female who underwent an uneventful right hip uncemented longstem bipolar hemiarthroplasty and open reduction and trochanteric cut out machine operator plate fixation of the proximal femur on 06/17/[address] Davis and Dr. Luna. Today the patient is postop day #2. This morning she is sitting comfortably in a chair at the bedside. She reports some right hip pain as to be expected but states that it is well controlled with as needed pain medication and rest. She states that she has had little to eat and reports that she does not have much of an appetite, but denies any episodes of nausea or vomiting. No history of any distal tingling/numbness. She has ambulated for transfer to a bedside chair with the assistance of physical therapy. She denies any history of fevers, chills, or rigors. She denies any other symptoms or concerns at this time. PN: Obj Ex Vital signs: Temp Pulse Resp BP Pulse Ox 98.9 F 86 24 139/67 94 L 06/18/22 08:00 06/18/22 08:00 06/18/22 08:00 06/18/22 08:00 06/18/22 08:00 - Constitutional no acute distress, cooperative - Routine HEENT Exam Head: Present: normocephalic, atraumatic Eye: Present: EOMI, PERRL ENT: Present: mucous membranes moist - Routine Neck Exam Present: supple, full ROM, trachea midline. Absent: JVD, lymphadenopathy - Routine Respiratory Exam Absent: accessory muscle use, respiratory distress Comments: Symmetric chest movement, able to speak in complete sentences - Routine Cardiovascular Exam Present: RRR Comments: Normal peripheral pulses - Routine Abdominal Exam Present: soft. Absent: tenderness - Routine Extremities Exam Comments: Upon examination of the lower extremities: The limb lengths are equal. Upon examination of the right hip, dressings present are clean, dry, and intact. No evidence of drainage or bleeding noted. The right hip and proximal femur are tender to palpation. Attempted movements of the right hip are somewhat painful. Thigh and calf are soft and nontender; Homans' sign is negative. No clinical evidence of DVT or compartment syndrome noted. Posterior tibial pulse 1+; capillary refill is brisk. Sensation to light touch is grossly intact throughout. Patient is actively mobilizing the foot, ankle, and toes. - Routine Skin Exam Present: intact, warm, normal turgor. Absent: cyanosis, erythema, lesions, jaundice - Routine Neurological Exam Present: alert, CN II-XII intact, altered mental status, moving all extremities, normal tone, normal speech. Absent: sensory deficit, motor deficit - Routine Psychiatric Exam Present: normal affect, cooperative - Urinary Catheter Management Villeda Cath placed during this visit: no Progress Note: A&P (1) Mild cognitive impairment Status: Acute (2) Mild aortic stenosis Status: Acute (3) Hip fracture Status: Acute (4) Hypothyroidism Status: Chronic (5) Essential hypertension Status: Chronic Assessment and Plan for All Diagnoses:: I have discussed the clinical findings and diagnostic imaging with the patient. Overall she is doing well from an orthopedic standpoint this morning and may be discharged when medically appropriate. Dressings present over the right hip are clean, dry, and intact. Continue PT/OT and standard precautions for a posterior approach to the hip; the patient may ambulate weightbearing as tolerated on the right lower extremity. Continue use of the abduction wedge when lying down/sleeping for 6 weeks postoperatively. Continue DVT prophylaxis for 6 weeks postoperatively. Continue rest, ice, and as needed pain medication. We will plan to see her in our office for her first postoperative visit in approximately 1 week for repeat x-ray and reevaluation; the patient has an appointment scheduled with Dr. Luna on 06/26/2022 a
[2022-06-18 08:37] LABS: Coronavirus 19, PCR Not Detected (NotDetected); Influenza A, PCR Not Detected (NotDetected); Influenza B, PCR Not Detected (NotDetected)
--- NOTE | 2022-06-18 11:49 | PC.NURSE ---
Dsg changed to R hip, per Dr. Davis this am. No s/s infection of problems. Boarder gauze was applied.
--- NOTE | 2022-06-19 14:42 | CARE MANAGER ---
Spoke with staff at intermediate. State patient is adjust well. Denies other questions or concerns. YUDY Rai
== END 2022-06-18 11:45 | DRG 522 ==
LOC: ER 03:13 → 2ND 05:39
PROVIDERS: Orthopaedic Surgery; Admitting Provider Internal Medicine Adolescent Medicine; Emergency Provider Emergency Medicine; PCP Internal Medicine Adolescent Medicine; Visit Provider Internal Medicine Adolescent Medicine
DX: S72.001A Fracture of unspecified part of neck of right femur, initial encounter for closed fracture (principal); N39.0 Urinary tract infection, site not specified; S72.141A Displaced intertrochanteric fracture of right femur, initial encounter for closed fracture; J44.9 Chronic obstructive pulmonary disease, unspecified; K21.9 Gastro-esophageal reflux disease without esophagitis; E78.5 Hyperlipidemia, unspecified; I10 Essential (primary) hypertension; I35.0 Nonrheumatic aortic (valve) stenosis; F03.90 Unspecified dementia, unspecified severity, without behavioral disturbance, psychotic disturbance, mood disturbance, and anxiety; S22.060G Wedge compression fracture of T7-T8 vertebra, subsequent encounter for fracture with delayed healing
CPT/HCPCS: 27248; 27125; 36415; 51702; 70450; 71045; 72125; 72128; 72131; 73502; 73552; 73560; 73700; 80048; 80053; 81001; 83735; 84436; 84443; 84484; 85007; 85025; 86850; 87086; 87088; 87186; 93005; 93306; 97110; 97162; 97165; 97530; 99285; C1713; C1776; C9803; J0696; J2405; J2505; U0003; U0005

== ENCOUNTER → 2022-06-22 07:20 | Outpatient (REF) | payer MEDICARE, SELFPAY ==
[2022-06-22 07:46] LABS: Basophils # 0.1 K/mm3 (0-0.2); Basophils % 0.6 % (0.1-2.0); Eosinophils # 0.4 K/mm3 (0.0-0.4); Hematocrit 28.1 % (37.0-47.0); Hemoglobin 8.8 g/dL (12.2-16.2); Lymphocytes # 1.4 K/mm3 (0.7-4.5); Lymphocytes % 11.6 % (10-50); Mean Corpuscular HGB Conc 31.4 g/dL (31.8-35.4); Mean Corpuscular Hemoglobin 28.9 pg (27.0-31.2); Mean Corpuscular Volume 91.9 fl (81-99); Mean Platelet Volume 9.8 fl (7.4-10.4); Monocytes # 0.6 K/mm3 (0.1-1.0); Neutrophils # 9.7 K/mm3 (1.8-7.8); Neutrophils % 79.8 % (37.0-80.0); Platelet Count 452 K/mm3 (142-424); Red Blood Count 3.05 M/mm3 (4.20-5.40); Red Cell Distribution Width 15.4 % (11.5-17.5); White Blood Count 12.2 K/mm3 (4.8-10.8)
[2022-06-22 08:12] LABS: Anion Gap 5.6 mEq/L (5-15); Blood Urea Nitrogen 19 mg/dl (7-17); Calcium 8.9 mg/dl (8.4-10.2); Carbon Dioxide 31 mmol/L (22.0-30.0); Chloride 99 mmol/L (98-107); Estimated Glomerular Filt Rate 95 ml/min (>60); GFR (African American) 116 ML/MIN (>60); Glucose 125 mg/dl (74-100); Potassium 4.6 mmoL/L (3.5-5.1); Sodium 131 mmol/L (136-145)
== END ==
LOC: LAB.DROPOF 07:20
PROVIDERS: Visit Provider Nurse Practitioner Family
DX: F03.90 Unspecified dementia, unspecified severity, without behavioral disturbance, psychotic disturbance, mood disturbance, and anxiety (principal); I10 Essential (primary) hypertension
CPT/HCPCS: 80048; 85025

== ENCOUNTER → 2022-06-26 10:34 | Outpatient (CLI) | payer MEDICARE, SELFPAY ==
--- NOTE | 2022-06-26 10:39 | XR_ITS ---
FINAL REPORT CLINICAL HISTORY: s/p hip COMPARISON: June 16, 2022 FINDINGS: RIGHT HIP Two views of the right hip with an AP pelvis demonstrate no acute fracture or dislocation. There is a right total hip prosthesis with a long stem component prosthesis present. There is a side plate and cerclage wires securing the proximal right femur. The visualized bony structures are well aligned. No soft tissue abnormality is seen. IMPRESSION: Postoperative changes with no acute bony abnormality. Reviewed, Interpreted and Dictated by Reji Dickens MD Transcribed by Estefany Cuello Authenticated and [facility]
== END ==
PROVIDERS: PCP Internal Medicine Adolescent Medicine; Visit Provider Orthopaedic Surgery
DX: S72.001A Fracture of unspecified part of neck of right femur, initial encounter for closed fracture (principal)
CPT/HCPCS: 73502

== ENCOUNTER → 2022-07-24 13:38 | Outpatient (CLI) | payer MEDICARE, SELFPAY ==
--- NOTE | 2022-07-24 13:57 | XR_ITS ---
FINAL REPORT CLINICAL HISTORY: s/p gamma nail COMPARISON: June 26, 2022 FINDINGS: 2 views of the right hip were obtained. There is no acute fracture or dislocation. There has been total joint prosthesis. There is a sideplate and cerclage wires. There are no soft tissue abnormalities. IMPRESSION: Stable postoperative changes. Reviewed, Interpreted and Dictated by Reji Dickens MD Transcribed by Rizwan Urbina Authenticated and [facility]
== END ==
PROVIDERS: Visit Provider Orthopaedic Surgery
DX: S72.001A Fracture of unspecified part of neck of right femur, initial encounter for closed fracture (principal)
CPT/HCPCS: 73502

== ENCOUNTER → 2022-09-04 10:40 | Outpatient (CLI) | payer MEDICARE, SELFPAY ==
--- NOTE | 2022-09-04 10:45 | XR_ITS ---
FINAL REPORT CLINICAL HISTORY: s/p rt hip gamma nail COMPARISON: July 2022 FINDINGS: Right hip with pelvis Three views were obtained. There has been right hip arthroplasty. There is a side plate and multiple cerclage wires. There is a separate lesser trochanter free fragment that is displaced proximally and anteriorly, stable. There is significant degenerative change in the lower lumbar spine. Vascular calcifications are present. IMPRESSION: Stable postoperative changes. Reviewed, Interpreted and Dictated by Hernandez Mabry III, MD Transcribed by Rizwan Urbina Authenticated and [facility]
== END ==
PROVIDERS: PCP Internal Medicine Adolescent Medicine; Visit Provider Orthopaedic Surgery
DX: S72.001A Fracture of unspecified part of neck of right femur, initial encounter for closed fracture (principal)
CPT/HCPCS: 73502

== ENCOUNTER → 2022-12-11 09:40 | Outpatient (CLI) | payer MEDICARE, SELFPAY ==
--- NOTE | 2022-12-11 09:53 | XR_ITS ---
FINAL REPORT CLINICAL HISTORY: s/p gamma nail right hip surgery COMPARISON: 09/04/2022 FINDINGS: Right hip Four views were obtained. There is no acute fracture or dislocation. The patient is status post total hip prosthesis with sideplate and cerclage wires. IMPRESSION: Postsurgical changes. Reviewed, Interpreted and Dictated by Reji Dickens MD Transcribed by Loree Siddiqui Authenticated and [facility]
== END ==
PROVIDERS: PCP Internal Medicine; Visit Provider Orthopaedic Surgery
DX: S72.001A Fracture of unspecified part of neck of right femur, initial encounter for closed fracture (principal)
CPT/HCPCS: 73502

== ENCOUNTER → 2023-02-12 12:29 | Outpatient (CLI) | payer MEDICARE, SELFPAY ==
--- NOTE | 2023-02-12 12:35 | XR_ITS ---
FINAL REPORT CLINICAL HISTORY: Right hip pain, fracture FINDINGS: RIGHT HIP Two views of the right hip demonstrate postoperative changes from right hip arthroplasty. Soft tissue calcifications are noted in the right hip. There are moderate degenerative changes in the left hip. Degenerative changes are seen in the lumbar spine. Vascular calcifications are noted. IMPRESSION: No postoperative changes with no acute bony abnormality in the right hip. Reviewed, Interpreted and Dictated by Hernandez Mabry III, MD Transcribed by Yolis Woodruff Authenticated and [facility]
== END ==
PROVIDERS: PCP Internal Medicine Adolescent Medicine; Visit Provider Orthopaedic Surgery
DX: S72.001A Fracture of unspecified part of neck of right femur, initial encounter for closed fracture (principal)
CPT/HCPCS: 73502

== ENCOUNTER → 2023-08-19 14:25 | Outpatient (CLI) | payer MEDICARE, SELFPAY ==
--- NOTE | 2023-08-19 14:31 | XR_ITS ---
FINAL REPORT CLINICAL HISTORY: right hip pain COMPARISON: 02/12/2023 FINDINGS: RIGHT HIP Two views of the right hip demonstrate no acute fracture or dislocation. There are postoperative changes of right hip arthroplasty. Heterotopic ossifications are seen of the right hip. There are degenerative changes of the lower lumbar spine. The visualized bony structures are well aligned. No soft tissue abnormality is seen. IMPRESSION: No acute bony abnormality. Reviewed, Interpreted and Dictated by Hernandez Mabry III, MD Transcribed by Carmita Rossi Authenticated and [facility]
== END ==
PROVIDERS: PCP Internal Medicine Adolescent Medicine; Visit Provider Orthopaedic Surgery
DX: S72.001A Fracture of unspecified part of neck of right femur, initial encounter for closed fracture (principal); Y99.9 Unspecified external cause status
CPT/HCPCS: 73502